=== PATIENT | female | born 1955 | race Hispanic/Latino ===

== ENCOUNTER 2024-12-07 15:02 | Inpatient (IN) | payer OTHER ==
[~2024-12-07] VITALS: Ht 154.9 cm; Wt 68.7 kg
--- NOTE | 2024-12-07 15:10 | ERN ---
ED Note History of Present Illness Stated Complaint: VOMITTING AND NAUSEA/ INSUFFICENT RENAL Chief Complaint: Abdominal Pain Time Seen by MD: 15:02 Time Seen by Midlevel: 15:08 Dictation: 69-year-old female coming in with complaints of vomiting, chills, epigastric pain for the last two days. Patient has a history of CKD non dialysis, hypertension diabetes cholesterol. Surgery includes cholecystectomy and C- section. Denies any blood in emesis or stools. Allergies: Coded Allergies: No Known Allergies (Unverified Allergy, Unknown, 12/07/24) Review of System Dictation Constitutional: Negative for fever,chills, and weight loss Eyes: Negative for injury, pain,redness, and discharge ENT: Negative for injury,pain or swelling Cardiovascular: Negative for chest pain, palpitations, and edema Respiratory: Negative for shortness of breath, cough, and wheezing, Abdomen/GI: complaining of nausea vomiting and right flank pain Back: Negative for injury and pain : Negative for injury, bleeding and discharge MS/Extremity: Negative for injury and deformity Skin: Negative for rash, and discoloration Neuro: Negative for headache, weakness, numbness, tingling, and seizure Psych: Negative for suicide ideation, homicidal ideation, and hallucinations Review of Systems: was completed Initial Vital Sign VS Vital Signs Date Time Temp Pulse Resp B/P (MAP) Pulse Ox O2 Delivery O2 Flow Rate FiO2 12/07/24 15:08 99.0 79 18 144/63 98 Room Air 0 12/07/24 18:47 21 Physical Exam Dictation General: awake, alert, NAD Head/Face: Normocephalic, atraumatic Eyes: PERRL, EOMI, vision at baseline ENT: oral cavity clear, TMs clear, no signs of infection Neck: Trachea midline, supple, no nuchal rigidity Cardiovascular: RRR, normal S1/S2, No MRGs, no JVD Respiratory: CTAB, no respiratory distress, No rales or wheezes Abdomen: Soft, non-tender, non-distended, normal bowel sounds, no guarding or rebound. No CVA tenderness Skin: Warm, dry, normal turgor, no rash MS/Extremity: Pulses equal, no cyanosis, neurovascular intact, FROM Neuro: COAx4, GCS 15, strength 5/5, CN 2-12 intact, normal cerebellar exam, normal gait, Psych: Normal behavior, mood, and affect normal Results (Laboratory/Radiology) Laboratory/Radiology Laboratory Tests Test 12/07/24 15:38 White Blood Count 12.9 K/uL (4.8-10.8) H Red Blood Count 3.06 MIL/uL (4.00-5.50) L Hemoglobin 7.9 g/dL (12.0-16.0) L Hematocrit 24.4 % (36-48) L Mean Corpuscular Volume 79.7 fL (79-99) Mean Corpuscular Hemoglobin 25.8 pg (27.0-33.0) L Mean Corpuscular Hemoglobin Concent 32.4 g/dL (32.0-36.0) Red Cell Distribution Width 16.6 % (11.0-15.5) H Platelet Count 186 K/uL (130-400) Mean Platelet Volume 10.7 fL (7.5-10.5) H Immature Granulocyte % (Auto) 1.2 % (0-1) H Neutrophils (%) (Auto) 90.5 % (40.0-77.0) H Lymphocytes (%) (Auto) 3.5 % (21.0-51.0) L Monocytes (%) (Auto) 4.1 % (3.0-13.0) Eosinophils (%) (Auto) 0.5 % (0.0-8.0) Basophils (%) (Auto) 0.2 % (0.0-5.0) Neutrophils # (Auto) 11.7 K/uL (1.8-7.7) H Lymphocytes # (Auto) 0.5 K/uL (1.0-4.8) L Monocytes # (Auto) 0.5 K/uL (0.1-1.0) Eosinophils # (Auto) 0.07 K/uL (0.00-0.70) Basophils # (Auto) 0.02 K/uL (0.00-0.20) Absolute Immature Granulocyte (auto 0.15 K/uL (0-1) Nucleated Red Blood Cells 0.2 % (0.0-0.19) H White Cell Morphology Comment See comments Sodium Level 141 mmol/L (136-145) Potassium Level 4.1 mmol/L (3.5-5.1) Chloride Level 106 mmol/L (101-111) Carbon Dioxide Level 7 mmol/L (21-32) *L Blood Urea Nitrogen 180 mg/dL (7-18) *H Creatinine 11.5 mg/dL (0.5-1.0) *H Glomerular Filtration Rate Calc 3 mL/min (>90) Random Glucose 169 mg/dL (70-105) H Total Calcium 6.4 mg/dL (8.5-10.1) L Total Bilirubin 0.4 mg/dL (0.2-1.0) Direct Bilirubin 0.1 mg/dL (0.0-0.3) Aspartate Amino Transf (AST/SGOT) 8 U/L (10-37) L Alanine Aminotransferase (ALT/SGPT) 17 U/L (12-78) Alkaline Phosphatase 90 U/L (50-136) Total Protein 7.0 g/dL (6.0-8.3) Albumin 3.0 g/dL (3.5-5.0) L Lipase 166 U/L (16-77) H Labs Reviewed?: Yes EKG Comment: EKGs did not 15 30. Sinus rhythm at a rate of 77. No STEMI interpreted by ER MD. ED Course ED Course Orders Procedure Category Date Status Time Cbc With Differential LAB 12/07/24 Complete 15:10 Basic Metabolic Panel LAB 12/07/24 Complete 15:10 Lipase LAB 12/07/24 Complete 15:10 Hepatic Function Panel LAB 12/07/24 Complete 15:10 12 Lead Ekg Tracing- EKG 12/07/24 Resulted Technical 15:10 Ondansetron 4mg Inj PHA 12/07/24 Complete (Zofran 4mg Inj) 15:10 Famotidine 20mg Vial PHA 12/07/24 Complete (Pepcid 20mg Vial) 15:10 0.9%Nacl 1000ml (Ns PHA 12/07/24 Complete 1000ml) 15:10 Ct Abdomen/Pelvis W/O CT 12/07/24 Resulted Contrast 17:57 Nephrology Consult CONPHYSVC 12/07/24 Transmitted 18:01 Morphine 2mg Syg PHA 12/07/24 Complete (Morphine 2mg Syg) 19:00 Acetaminophen 325 Tab PHA 12/07/24 Complete (Tylenol 325mg Tab 19:00 Ceftriaxone 1g Vial PHA 12/07/24 Logged (Rocephine 1g Inj) 19:19 Azithromycin 500mg+Ns PHA 12/07/24 Logged 250ml (Azithromyci 19:19 Current Medications Medications (Trade) Dose Ordered Sig/Julio Cesar Route PRN Reason Start Time Stop Time Status Last Admin Dose Admin Acetaminophen (TYLenol 325MG TAB) 650 mg ONCE ONCE PO 12/07/24 19:00 12/07/24 19:01 DC 12/07/24 19:06 Azithromycin 250 ml @ 250 mls/hr Q24H STAT IVPB 12/07/24 19:19 12/07/24 20:18 UNV Ceftriaxone Sodium (ROCEphine 1G INJ) 1 gm ONCE STAT IVPB 12/07/24 19:19 12/07/24 19:20 UNV Famotidine (Pepcid 20mg Vial) 20 mg ONCE STAT IV 12/07/24 15:10 12/07/24 15:14 DC 12/07/24 16:07 Morphine Sulfate (morPHINE 2MG SYG) 2 mg ONCE ONCE IVP 12/07/24 19:00 12/07/24 19:01 DC Ondansetron HCl (zoFRAN 4MG INJ) 4 mg ONCE STAT IVP 12/07/24 15:10 12/07/24 15:15 DC 12/07/24 16:07 Sodium Chloride 1,000 ml @ 500 mls/hr Q2H STAT IV 12/07/24 15:10 12/07/24 17:09 DC 12/07/24 16:08 Vital Signs Date Time Temp Pulse Resp B/P (MAP) Pulse Ox O2 Delivery O2 Flow Rate FiO2 12/07/24 19:06 99.0 12/07/24 18:47 99.0 74 20 118/56 99 Room Air* 0 21 12/07/24 15:08 99.0 79 18 144/63 98 Room Air 0 Medical Decision Making MDM MDM: 69-year-old female coming in with complaints of vomiting, chills, epigastric pain for the last two days. Patient has a history of CKD non dialysis, hypertension diabetes cholesterol. Surgery includes cholecystectomy and . Denies any blood in emesis or stools.CBC shows white count of 12, anemia hemoglobin of 7.9 and hematocrit of 24, more than likely related to her CKD. Chemistry shows normal potassium of 4.1. BUN is 180, creatinine is 11.5 consistent with her history of CKD. No transaminitis. T bili within normal range. Lipase is 166. Spoke to riprap placer , reviewed lab work, states to admit the patient and he will consult. Does not recommend any medications or any other exam sent at this time. Pain doing call back from hospitalist for admission. Ct showing pneumonia in lower lobes, abx initiated. Spoke to bharat potato chip cooker machine for hospitalist. Differential diagnosis: Gastroenteritis, DKA, dehydration, pancreatitis Rationale: Tests considered and ordered secondary to shared decision making include: labs, ECG and radiology Previous outside records reviewed: Old ER visits. Risk of complication and/or morbidity or mortality of patient management: None Medications-Per medication reconciliation Need for hospitalization: Patient does meet criteria for hospitalization. Need for emergency major/minor surgery: No There are no social concerns with this patient. Prescription drug management Prescriptions will include symptomatic care Patient's prior external medical records from other ER visits were reviewed by me as indicated. Prior testing and results from previous visits were reviewed. Prior tests were taken into account with medical decision making and resource utilization, independent historian/historians were used to obtain complete medical history. I independently interpreted the test that were performed, results were reviewed by me and considered findings on radiology if ordered. Medical management and examination interpretation discussions were had by me with other qualified healthcare professionals as indicated for the patient's care. DX & DISP Disposition: Inpatient Decision to Admit Date: Dec 07, 2024 Decision to Admit Time: 19:24 Departure Impression: Primary Impression: CKD (chronic kidney disease) Additional Impressions: Anemia, Pneumonia Condition: Stable Referrals: SELF,REFERRAL (PCP) I have reviewed the case, and I agree with, Diagnosis and Plan PARKER SHEA NP Dec 07, 2024 15:10
--- NOTE | 2024-12-07 15:34 | EKG ---
[facility] Test Date: 2024-12-07 Test Time: 15:30:28 Pat Name: JORDYN CEDENO Department: ED Room: Gender: F Human Resources Technician: [id number] [phone] [id number] Requested By: PARKER SHEA Order Number: [id number] Reading MD: Binh Huynh Measurements Intervals [place] Rate: 77 P: 53 TX: 153 QRS: 29 QRSD: 81 T: 29 QT: 440 QTc: 499 Interpretive Statements Sinus rhythm No previous ECG available for comparison Electronically Signed On 12-07-2024 17:21:26 CDT by Binh Huynh Please click the below link to view image of tracing.
[2024-12-07 15:52] LABS: IMMATURE GRANULOCYTE ABSOLUTE 0.15 K/uL (0-1); NUCLEATED RED BLOOD CELLS 0.2 % (0.0-0.19); PLATELET COUNT (AUTO) 186 K/uL (130-400); RED BLOOD CELL COUNT(AUTO) 3.06 MIL/uL (4.00-5.50); RED CELL DISTRIBUTION WIDTH 16.6 % (11.0-15.5); WHITE BLOOD COUNT (AUTO) 12.9 K/uL (4.8-10.8)
[2024-12-07] MEDS: FAMOTIDINE 20MG VIAL IV STA (16:07)
[2024-12-07] MEDS: 0.9%NACL 1000ML 1,000 ML IV STA (16:08)
[2024-12-07 16:20] LABS: ASPARTATE AMINOTRANSFERASE 8.0 U/L (10-37); GLOMERULAR FILTR. RATE CALC 3.0 mL/min (>90); GLUCOSE,RANDOM 169.0 mg/dL (70-105); SODIUM SERUM 141.0 mmol/L (136-145); TOTAL PROTEIN, SERUM 7.0 g/dL (6.0-8.3)
[2024-12-07 16:28] LABS: CREATININE 11.5 mg/dL (0.5-1.0); UREA NITROGEN, BLOOD 180.0 mg/dL (7-18)
--- NOTE | 2024-12-07 18:37 | HMCIMG ---
CT ABDOMEN WITHOUT CONTRAST. CT PELVIS WITHOUT CONTRAST. INDICATION: Right flank pain TECHNIQUE: Routine transaxial imaging using 5 mm slice thickness through the abdomen and pelvis without the administration of IV contrast. Thin slice reconstructions are also provided. Coronal and sagittal reformatted images acquired for interpretation. CT was performed with one or more of the following dose reduction techniques: Automated exposure control, adjustment of the mA and/or kV according to patient size, or use of iterative reconstruction technique. COMPARISON: None FINDINGS: ON NONCONTRAST IMAGING: ABDOMEN: Heart size is normal. Patchy opacities bilateral lower lobes No abnormal renal calcifications, hydronephrosis, perinephric inflammation, or proximal hydroureter detected. The liver is normal in size and smooth in contour without biliary duct dilation. The spleen is normal in size and attenuation. The gallbladder his absent. The pancreas appears normal without pancreatic duct dilation. The adrenal glands appear normal. No significant abdominal, retrocrural or retroperitoneal adenopathy noted. No evidence for intra-abdominal free air or organized fluid collection. Mild calcific plaque is noted along the abdominal aortic and iliac vessel ludwig without aneurysmal dilation. Tiny fat-containing nonobstructing umbilical hernia. PELVIS: No abnormal calcifications within the urinary bladder or distal ureters. No evidence for free air or organized pelvic fluid collection. No significant pelvic adenopathy detected. Several diverticula along the proximal colon. Terminal ileum appears unremarkable. The appendix appears normal. Visible osseous structures are intact. IMPRESSION: Bilateral lower lobe pneumonia. Proximal colonic diverticulosis. Tiny fat-containing nonobstructing umbilical hernia.
[2024-12-07] MEDS: AZITHROMYCIN 500MG+NS 250ML 250 ML IVPB STA (19:47)
--- NOTE | 2024-12-07 20:14 | HMCIMG ---
PORTABLE CHEST RADIOGRAPH INDICATION: pneumonia per abd CT COMPARISON: None FINDINGS: Heart size is normal. The pulmonary vascularity and mavis appear normal. Patchy bilateral lower lobe opacities, left greater than right, without consolidation. No significant pleural effusion noted. No pneumothorax detected. IMPRESSION: Bilateral lower lung pneumonia.
--- NOTE | 2024-12-07 20:49 | HP ---
[facility] HISTORY AND PHYSICAL Date of Service: Dec 07, 2024 Time of Service: 20:48 Admitting/supervising physicians: Dr. Lara and Dr. Padilla HISTORY OF PRESENT ILLNESS: Ms. Kirby is a 69-year-old female who [place] [facility] [place] evaluation of vo miting, chills, epigastric pain for the last two days. Patient has a history of CKD non dialysis, hypertension diabetes cholesterol. Surgery includes cholecystectomy and . Denies any blood in emesis or stools. In ED patient was found to have bilateral lower lobe pneumonia from the CT abdomen and pelvis obtain. CT abdomen also showed proximal colonic diverticulosis. Tiny fat stranding nonobstructing umbilical hernia. WBCs were 12.9. UA was positive for leuk EST. BUN 180, creatinine 11.5, GFR three. ED let patient's shotgun shell assembly machine operator Dr. Burt know of the patient, who will follow patient in the hospital. ED provider request patient be admitted with the diagnosis of CKD, anemia, pneumonia. I assessed the patient at bedside in room number 308. Patient's breathing was even, unlabored, in no distress. I informed the patient of labs, diagnostics, and plan of care. She verbalized understanding and is in agreement with the plan. Plan and assessment are listed below. REVIEW OF SYSTEMS 12-point ROS reviewed with the patient. All pertinent positives mentioned above. Otherwise negative, noncontributory, non-pertinent. PAST MEDICAL HISTORY: As mentioned above PAST SURGICAL HISTORY: Cholecystectomy and PAST SOCIAL HISTORY: Denies alcohol, tobacco, illicit drug use FAMILY HISTORY: Noncontributory Coded Allergies: No Known Allergies (Unverified Allergy, Unknown, 12/07/24) PHYSICAL EXAM GENERAL APPEARANCE: The patient is awake, alert, and oriented, in no acute cardiopulmonary distress. NEUROLOGICAL: Cranial nerves II-XII grossly intact. Motor is 5/5 in bilateral upper and lower extremities proximal to distal. No sensory deficits. HEENT: Face is symmetric. Pupils are equal and reactive. Extraocular movements are intact. NECK: Supple. No JVD. No thyromegaly. No submental, submandibular, pre- /postauricular, occipital or supraclavicular lymphadenopathy. CHEST: Normal chest expansion. No Telemetry. LUNGS: + wheezing. Breathing was even, unlabored, on room air CARDIOVASCULAR: Regular. S1 and S2 normal. No appreciable rubs, murmurs or gallops. ABDOMEN: Soft, nontender, and nondistended. Obese. There is no rebound, voluntary guarding, or rigidity. : Deferred. No Gupta. EXTREMITIES: Non-edematous and not cyanotic. No clubbing. Good capillary refill. SKIN: No skin breakdown. Vital Sign (Last 24 Hours) 12/07/24 19:44 Temp 99.0 Pulse 74 Resp 20 B/P (MAP) 120/61 Pulse Ox 98 O2 Delivery Room Air* O2 Flow Rate 0 FiO2 21 LABS: Laboratory: Test 12/07/24 19:33 12/07/24 15:38 Range/Units Lactic Acid Level 1.1 0.8-2.5 mmol/L White Blood Count 12.9 H 4.8-10.8 K/uL Red Blood Count 3.06 L 4.00-5.50 MIL/uL Hemoglobin 7.9 L 12.0-16.0 g/dL Hematocrit 24.4 L 36-48 % Mean Corpuscular Volume 79.7 79-99 fL Mean Corpuscular Hemoglobin 25.8 L 27.0-33.0 pg Mean Corpuscular Hemoglobin Concent 32.4 32.0-36.0 g/dL Red Cell Distribution Width 16.6 H 11.0-15.5 % Platelet Count 186 130-400 K/uL Mean Platelet Volume 10.7 H 7.5-10.5 fL Immature Granulocyte % (Auto) 1.2 H 0-1 % Neutrophils (%) (Auto) 90.5 H 40.0-77.0 % Lymphocytes (%) (Auto) 3.5 L 21.0-51.0 % Monocytes (%) (Auto) 4.1 3.0-13.0 % Eosinophils (%) (Auto) 0.5 0.0-8.0 % Basophils (%) (Auto) 0.2 0.0-5.0 % Neutrophils # (Auto) 11.7 H 1.8-7.7 K/uL Lymphocytes # (Auto) 0.5 L 1.0-4.8 K/uL Monocytes # (Auto) 0.5 0.1-1.0 K/uL Eosinophils # (Auto) 0.07 0.00-0.70 K/uL Basophils # (Auto) 0.02 0.00-0.20 K/uL Absolute Immature Granulocyte (auto 0.15 0-1 K/uL Nucleated Red Blood Cells 0.2 H 0.0-0.19 % White Cell Morphology Comment See comments Sodium Level 141 136-145 mmol/L Potassium Level 4.1 3.5-5.1 mmol/L Chloride Level 106 101-111 mmol/L Carbon Dioxide Level 7 *L 21-32 mmol/L Blood Urea Nitrogen 180 *H 7-18 mg/dL Creatinine 11.5 *H 0.5-1.0 mg/dL Glomerular Filtration Rate Calc 3 >90 mL/min Random Glucose 169 H 70-105 mg/dL Total Calcium 6.4 L 8.5-10.1 mg/dL Total Bilirubin 0.4 0.2-1.0 mg/dL Direct Bilirubin 0.1 0.0-0.3 mg/dL Aspartate Amino Transf (AST/SGOT) 8 L 10-37 U/L Alanine Aminotransferase (ALT/SGPT) 17 12-78 U/L Alkaline Phosphatase 90 50-136 U/L Total Protein 7.0 6.0-8.3 g/dL Albumin 3.0 L 3.5-5.0 g/dL Lipase 166 H 16-77 U/L Current Medications Medications (Trade) Dose Ordered Sig/Julio Cesar Route PRN Reason Start Time Stop Time Status Last Admin Dose Admin Acetaminophen (TYLenol 325MG TAB) 650 mg Q6H PRN PO FEVER/MILD PAIN LEVEL 1-3 12/07/24 21:00 01/06/25 20:59 Acetaminophen (TYLenol 650MG SUPPOSITORY) 650 mg Q6H PRN RC FEVER / MILD PAIN 1-3 IF NPO 12/07/24 21:00 01/06/25 20:59 Albuterol Sulfate (Proventil 0.083% 2.5mg/3ml) 2.5 mg [id number] PRN IH SHORTNESS OF BREATH 12/07/24 21:00 01/06/25 20:59 Azithromycin 250 ml @ 250 mls/hr Q24H STAT IVPB 12/07/24 19:19 12/07/24 20:18 DC 12/07/24 19:47 250 MLS/HR Ceftriaxone Sodium (ROCEphine 1G INJ) 1 gm ONCE STAT IVPB 12/07/24 19:19 12/07/24 19:22 DC 12/07/24 19:34 1 GM Docusate Sodium (COLace 100MG CAP) 100 mg BID PRN PO c 12/07/24 21:00 01/06/25 20:59 Famotidine (Pepcid 20mg Vial) 20 mg ONCE STAT IV 12/07/24 15:10 12/07/24 15:14 DC 12/07/24 16:07 20 MG Insulin Human Regular (humuLIN R 100 UNIT/ML 3ML) INSULIN SLIDING SCAL... ACHS SQ 12/07/24 21:00 01/06/25 20:59 Ipratropium Monarch (AtrovENT UD) 0.5 mg [id number] PRN IH SHORTNESS OF BREATH/WHEEZING 12/07/24 21:00 01/06/25 20:59 Labetalol HCl (TRANdate 20MG SYG) 10 mg Q2H PRN IV SBP GREATER THAN 160 12/07/24 21:00 01/06/25 20:59 Lactulose (Constulose 20gm/ 30ml Udcup) 20 gm Q6H PRN PO CONSTIPATION 12/07/24 21:00 01/06/25 20:59 Ondansetron HCl (zoFRAN 4MG INJ) 4 mg ONCE STAT IVP 12/07/24 15:10 12/07/24 15:15 DC 12/07/24 16:07 4 MG Ondansetron HCl (zoFRAN 4MG INJ) 4 mg Q6H PRN IVP NAUSEA/VOMITING 12/07/24 21:00 01/06/25 20:59 Sodium Chloride 1,000 ml @ 500 mls/hr Q2H STAT IV 12/07/24 15:10 12/07/24 17:09 DC 12/07/24 16:08 500 MLS/HR Temazepam (restORIL 15 MG CAP) 15 mg HS PRN PO INSOMNIA/SLEEP 12/07/24 21:00 01/06/25 20:59 DIAGNOSTICS / RADIOLOGY: [ ] ASSESSMENT: CAP, POA, bilateral lower lung pneumonia, per chest x-ray and CT Acute complicated cystitis, POA Metabolic Acidosis, POA Acute epigastric pain, POA Acute vomiting, POA Acute febrile illness Leukocytosis, POA Anemia of chronic disease ESRD non dialysis, GFR 3 Diabetes mellitus with hyperglycemia Hypoalbuminemia Elevated lipase PLAN: -Admit to Medical floor with continuous telemetry monitoring -Monitor respiratory status closely. -Continue oxygen therapy as needed. Titrate oxygen prn to keep Spo2>/+=92%. -Albuterol and Atrovent q.6 hours scheduled. -Pulmicort 0.5 mg b.i.d. -Start Lasix 40 mg IV daily. -Sodium bicarb and calcium gluconate x1 dose. -Reconcile/start home medications: Amlodipine, Lasix, metoprolol succinate. -Strict I&Os. -Daily weights. -Fluid restriction a 1200 mL. -Nephrology has been consulted by ED. We will follow Nephrology's re commendations. -RT to provide IS and education on use. -Robitussin DM as needed cough. -Continue antibiotic therapy: Zithromax 500 mg IV daily and Rocephin 2 g IV daily -PRN medications for: Pain management, fever, hypertension, N/V, constipation. -Glucometer checks AC & HS needed with insulin regular sliding scale coverage as needed. -Blood pressure checks every 4 hours and as needed. -Reconcile home medications once available. - Monitor renal and liver function. -Monitor electrolytes and treat accordingly PRN -AM labs. -GI and DVT prophylaxis: Pepcid and heparin -Further plan/orders per hospitalization course. ADVANCED CARE PLANNING 1. Which of the following were discussed? Hospice Care - No Therapeutic options - Yes Advance Directives - Yes Other discussions - 2. Discussed with who? The patient 3. Voluntary nature of this service was explained to the patient? Yes 4. Amount of time spent - __ Over 40 minutes 5. Reviewed by Physician? (if this service was performed by NPP) Yes / No ATTESTATION BY PHYSICIAN I have seen and examined the patient. I reviewed the documentation, medical decision making, and treatment plan as noted by the mid-level provider above. I agree with the findings and plan of care. VERONA CLARK [facility] Dec 07, 2024 20:49
[2024-12-07] MEDS ORDERED: LACTULOSE 20 GM/30 ML UDCUP PO PRN (21:00)
[2024-12-07] MEDS: ALBUTEROL 0.083% 2.5 MG/3 ML INH IH PRN (21:49)
[2024-12-07 21:50] VITALS: PULSE 86; RESP 19; O2SAT 96
[2024-12-07] MEDS ORDERED: METO-391 PO (22:54)
[2024-12-07] MEDS ORDERED: AMLO-258 PO (22:54)
[2024-12-07] MEDS ORDERED: FURO40SO4 PO (22:54)
[2024-12-07 23:34] VITALS: BP 136/45; PULSE 79; RESP 19; TEMP 98.1
[2024-12-07 23:50] VITALS: PULSE 82; RESP 19
[2024-12-08] VITALS (10 sets, daily range): BP systolic 119–151; BP diastolic 53–65; PULSE 73–93; RESP 18–19; TEMP 98–98.6; O2SAT 93–100
--- NOTE | 2024-12-08 01:36 | CONS ---
NEPHROLOGY CONSULTATION REASON FOR CONSULTATION: The patient was brought in with worsening renal failure, underlying hypertension and diabetes. The patient has nausea and vomiting. HISTORY OF PRESENT ILLNESS: This lady has multiple medical problems. She is admitted with increasing shortness of breath. The patient does have underlying nausea, vomiting, pain in the abdomen. The patient has advanced renal failure, diabetes and hypertension. No other associated findings. No other aggravating or relieving factors. The patient now is critically ill. The patient has significant anemia. PAST MEDICAL HISTORY: As above is significant for diabetes, hypertension, hyperlipidemia and chronic kidney disease. PAST SURGICAL HISTORY: Cholecystectomy and . SOCIAL HISTORY: Denies any smoking, alcohol or drug abuse. FAMILY HISTORY: Negative for any kidney cyst, stone or renal problems. REVIEW OF SYSTEMS: CONSTITUTIONAL: Generalized weakness with no fevers, chills or rigors. HEENT: With no headache, oral ulcer, sore throat or difficulty swallowing. RESPIRATORY: No cough, expectoration, hemoptysis or pleuritic pain. CARDIOVASCULAR: No orthopnea or PND. GASTROINTESTINAL: Positive for some nausea, vomiting, weakness, loss of appetite. GENITOURINARY: No dysuria and hematuria. DERMATOLOGIC: No rashes, pruritus. ENDOCRINE: No polyuria, polydipsia or polyphagia. PSYCHIATRIC: Review is negative for anxiety, depression, hallucinations. All other systemic review is unchanged. PHYSICAL EXAMINATION: GENERAL: Pale, no other distress or deformity, obese, laying in bed. VITAL SIGNS: Blood pressure is 144/63, pulse is 79, respiratory rate is 18 and afebrile. HEENT: Head is atraumatic, normocephalic. Pupils are round, reactive. Sclerae anicteric. Conjunctiva not pale. Oral mucosa is not dry. NECK: Supple. No masses or bruits. Thyroid is palpable. Neck has no bruits. CHEST: Shows equal to thoracic percussion note being resonant in all areas. CARDIAC: Regular rhythm. No rub. No S3, S4. No parasternal heave. ABDOMEN: With no guarding or tenderness. Bowel sounds hypoactive. No free fluid. EXTREMITIES: With no edema. No cyanosis or clubbing. BACK: No tenderness or back deformities. SKIN: No other petechial rash or nodules on inspection. LYMPHATIC: No lymph node swelling in neck and axillary area. NEUROLOGIC: Awake, alert, nonfocal. No cranial nerve palsies. LABORATORY DATA: Labs have shown low hemoglobin of 7.9 and white cell count 12.9. Creatinine is quite elevated up to 11.5, BUN is 180 and low CO2 of 7. IMAGING STUDIES: Reviewed. EKG has shown sinus rhythm. No other findings. No other major changes. Imaging studies have been done. Abdominal and pelvic CT has shown no evidence of hydronephrosis. bilateral pneumonia. Chest x-ray was reviewed with bilateral infiltrates. PROBLEMS: Include, this patient has: * Renal failure, which may be [id number] or may have reached end stage II. * Severe acidosis. * Severe anemia. * Pneumonia. * Underlying diabetic nephropathy. * Underlying hypertension. * Significant anemia. * Underlying reported noncompliance. * Weakness and other comorbidities. * The patient is critically ill. PLAN: * Should get a potline monitor. * Iron panel and ferritin. * Sodium bicarbonate. * Nephro-[place]. * May need dialysis. * Maintain hydration. * Nonsteroidal drugs to be avoided. * Other nephrotoxic and NSAIDs to be avoided. * Adjust dose of medicine. * Avoid contrast. * Preserve nondominant arm. * Continued followup on renal function, electrolytes and overall status. IV Dilaudid 0.5 mg q.6h p.r.n. pain. We have discussed with the other team physicians. We have reviewed the old record, external records. Labs and x-ray were personally reviewed and followup labs and imaging studies are ordered. We will follow up closely. Condition remains critical and guarded. TID: [id number] RECEIPT: [id number]
[2024-12-08 02:12] LABS: ADD UA MICROSCOPIC YES; APPEARANCE,URINE CLEAR (CLEAR); GLUCOSE, URINE (UA) 50 mg/dL (NEGATIVE); LEUKOCYTE ESTERASE ,URINE 250 Leu/uL (NEGATIVE); NITRATE,URINE NEGATIVE (NEGATIVE); OCCULT BLOOD,URINE SMALL (NEGATIVE)
[2024-12-08 02:15] LABS: CREATININE,URINE RANDOM 43.26 mg/dL (30-135)
[2024-12-08 02:17] LABS: SQUAMOUS EPITHELIAL CELL,UR RARE /HPF (0-2)
[2024-12-08 04:44] LABS: ABG BASE EXCESS -21.5 mmol/L (-2.0-3.0); ABG HCO3 5.7 mmol/L (21.0-28.0); ABG OXYGEN SATURATION 96.8 % (94.0-98.0); ABG PCO2 17 mmHg (32-45); ABG PH 7.136 (7.350-7.450); CARBON MONOXIDE 0.1 % (0.5-1.5); DEVICE COMMENT RR, RN CYNTHIA; PO2, ARTERIAL BG 110.9 mmHg (83.0-108.0); TEMPERATURE, CELSIUS BG 37.0 CELSIUS (35.5-37.0); VENT MODE, BG RA (ROOM AIR)
[2024-12-08 04:48] LABS: ABG BASE EXCESS -21.3 mmol/L (-2.0-3.0); ABG HCO3 5.5 mmol/L (21.0-28.0); ABG OXYGEN SATURATION 97.1 % (94.0-98.0); ABG PCO2 16 mmHg (32-45); ABG PH 7.154 (7.350-7.450); CARBON MONOXIDE 0.3 % (0.5-1.5); DEVICE COMMENT RR, RNCYNTHIA; PO2, ARTERIAL BG 114.3 mmHg (83.0-108.0); TEMPERATURE, CELSIUS BG 37.0 CELSIUS (35.5-37.0); VENT MODE, BG RA (ROOM AIR)
[2024-12-08 04:57] LABS: RAPID GROUP A STREP negative (NEGATIVE)
[2024-12-08 05:02] LABS: SARS-CoV-2, RNA, NAAT NEGATIVE SARS CoV-2 (NEGATIVE)
[2024-12-08 05:07] LABS: INFLUENZA TYPE A Negative For Type A (NEGATIVE); INFLUENZA TYPE B Negative For Type B (NEGATIVE)
[2024-12-08] MEDS: SODIUM BICARB 50MEQ 50ML VIAL IV ONE (05:45)
[2024-12-08] MEDS: CALCIUM GLUC 1GM/10ML VIAL IV ONE (05:45)
[2024-12-08 06:39] LABS: NUCLEATED RED BLOOD CELLS 0.2 % (0.0-0.19); PLATELET COUNT (AUTO) 189.0 K/uL (130-400); RED BLOOD CELL COUNT(AUTO) 2.71 MIL/uL (4.00-5.50); RED CELL DISTRIBUTION WIDTH 16.2 % (11.0-15.5); WHITE BLOOD COUNT (AUTO) 9.2 K/uL (4.8-10.8)
[2024-12-08] MEDS: BUDESONIDE 0.5 MG/2 ML INH IH SCH (07:17)
[2024-12-08 07:23] LABS: % IRON SATURATION 11.6 % (22-44); IRON, SERUM 21.0 mcg/dL (50-170)
[2024-12-08 07:29] LABS: ASPARTATE AMINOTRANSFERASE 7.0 U/L (10-37); GLOMERULAR FILTR. RATE CALC 4.0 mL/min (>90); GLUCOSE,RANDOM 125.0 mg/dL (70-105); SODIUM SERUM 146.0 mmol/L (136-145); TOTAL PROTEIN, SERUM 6.4 g/dL (6.0-8.3)
[2024-12-08 07:38] LABS: CREATININE 10.7 mg/dL (0.5-1.0); UREA NITROGEN, BLOOD 170.0 mg/dL (7-18)
[2024-12-08 07:45] LABS: NUCLEATED RED BLOOD CELLS 0.3 % (0.0-0.19); PLATELET COUNT (AUTO) 170.0 K/uL (130-400); RED BLOOD CELL COUNT(AUTO) 2.66 MIL/uL (4.00-5.50); RED CELL DISTRIBUTION WIDTH 16.3 % (11.0-15.5); WHITE BLOOD COUNT (AUTO) 7.9 K/uL (4.8-10.8)
[2024-12-08 07:51] LABS: PHOSPHORUS 9.6 mg/dL (2.5-4.9)
[2024-12-08] MEDS: FAMOTIDINE 20MG VIAL IV SCH (08:47)
[2024-12-08] MEDS: SODIUM BICARBONATE 650 MG TAB PO SCH (08:47)
[2024-12-08] MEDS: Vitamin B Complex/Vit C/Folic Acid PO SCH (08:47)
[2024-12-08] MEDS: amLODIPine 5 MG TAB PO SCH (08:47)
--- NOTE | 2024-12-08 10:31 | NUR ---
DCP: HOME Pt currently lives with sps. Pt states that she uses a cane to assist her walk at home. Pt does not have any provider or home health services at this time. Pt states that prior to admission she did not have any dialysis. Pt is able to complete ADLs independently. PCP is Dr. James and uses [facility] for any RX needs. At [place] pt will go home and family can assist with transportation. Addendum: 12/08/24 at 1033 by NASH AVILA SS Amended: Links added.
--- NOTE | 2024-12-08 11:09 | PN ---
[facility] PROGRESS NOTE Date of Service: Dec 08, 2024 Time of Service: 11:[address] Lara SUBJECTIVE: [ 12/07 Ms. Kirby is a 69-year-old female who [place] [facility] [place] evaluation of vomiting, chills, epigastric pain for the last two days. Patient has a history of CKD non dialysis, hypertension diabetes cholesterol. Surgery includes cholecystectomy and . Denies any blood in emesis or stools. In ED patient was found to have bilateral lower lobe pneumonia from the CT abdomen and pelvis obtain. CT abdomen also showed proximal colonic diverticulosis. Tiny fat stranding nonobstructing umbilical hernia. WBCs were 12.9. UA was positive for leuk EST. BUN 180, creatinine 11.5, GFR three. ED let patient's pupil personnel services director Dr. Burt know of the patient, who will follow patient in the hospital. ED provider request patient be admitted with the diagnosis of CKD, anemia, pneumonia. I assessed the patient at bedside in room number 308. Patient's breathing was even, unlabored, in no distress. I informed the patient of labs, diagnostics, and plan of care. She verbalized understanding and is in agreement with the plan. Plan and assessment are listed below. 12/08 patient was seen by nurse practitioner and physician during rounding in room 308. Patient is pending PermCath placement today and dialysis afterwards as per pupil personnel services director. Today hemoglobin is 6.9 patient requiring one PRBC. Chest x-ray showed bilateral lower lobe pneumonia. CT abdomen/pelvis showed bilateral lower lobe pneumonia proximal colonic diverticulosis nonobstructive umbilical hernia. Patient's labs were reviewed. Patient continues to be on sodium bicarb. Urinalysis positive for leukocytosis. Blood culture and urine culture pending. Patient receive 2 g of magnesium. We will continue to monitor patient in the meantime. A.m. labs.] REVIEW OF SYSTEMS 12-point ROS reviewed with the patient. All pertinent positives mentioned above. Otherwise negative, noncontributory, non-pertinent. PHYSICAL EXAM GENERAL APPEARANCE: The patient is awake, alert, and oriented, in no acute cardiopulmonary distress. NEUROLOGICAL: Cranial nerves II-XII grossly intact. Motor is 5/5 in bilateral upper and lower extremities proximal to distal. No sensory deficits. HEENT: Face is symmetric. Pupils are equal and reactive. Extraocular movements are intact. NECK: Supple. No JVD. No thyromegaly. No submental, submandibular, pre- /postauricular, occipital or supraclavicular lymphadenopathy. CHEST: Normal chest expansion. No Telemetry. LUNGS: + wheezing. Breathing was even, unlabored, on room air CARDIOVASCULAR: Regular. S1 and S2 normal. No appreciable rubs, murmurs or gallops. ABDOMEN: Soft, nontender, and nondistended. Obese. There is no rebound, voluntary guarding, or rigidity. : Deferred. No Gupta. EXTREMITIES: Non-edematous and not cyanotic. No clubbing. Good capillary refill. SKIN: No skin breakdown. Vital Signs (last 8hr) Date Time Temp Pulse Resp B/P (MAP) Pulse Ox O2 Delivery O2 Flow Rate FiO2 12/08/24 08:00 98.1 89 18 119/62 93 Nasal Cannula 2.0 12/08/24 07:17 79 19 N/A Room Air 21 12/08/24 07:17 79 19 12/08/24 04:55 98.2 73 18 135/55 97 Room Air LABS: Laboratory: Test 12/08/24 07:38 12/08/24 06:11 12/08/24 06:10 12/08/24 04:46 Range/Units White Blood Count 7.9 4.8-10.8 K/uL Red Blood Count 2.66 L 4.00-5.50 MIL/uL Hemoglobin 6.9 *L 12.0-16.0 g/dL Hematocrit 20.4 *L 36-48 % Mean Corpuscular Volume 76.7 L 79-99 fL Mean Corpuscular Hemoglobin 25.9 L 27.0-33.0 pg Mean Corpuscular Hemoglobin Concent 33.8 32.0-36.0 g/dL Red Cell Distribution Width 16.3 H 11.0-15.5 % Platelet Count 170 130-400 K/uL Mean Platelet Volume 11.1 H 7.5-10.5 fL Nucleated Red Blood Cells 0.3 H 0.0-0.19 % Whole Blood Glucose 120 H 70-110 MG/DL Sodium Level 146 H 136-145 mmol/L Potassium Level 3.7 3.5-5.1 mmol/L Chloride Level 110 101-111 mmol/L Carbon Dioxide Level 10 *L 21-32 mmol/L Blood Urea Nitrogen 170 *H 7-18 mg/dL Creatinine 10.7 *H 0.5-1.0 mg/dL Glomerular Filtration Rate Calc 4 >90 mL/min Random Glucose 125 H 70-105 mg/dL Uric Acid 8.8 H 2.6-7.2 mg/dL Total Calcium 6.8 L 8.5-10.1 mg/dL Phosphorus Level 9.6 H 2.5-4.9 mg/dL Magnesium Level 1.30 L 1.80-2.40 mg/dL Iron Level 21 L 50-170 mcg/dL Total Iron Binding Capacity 180 L 250-450 mcg/dL Percent Iron Saturation 11.6 L 22-44 % Ferritin 52 15-150 ng/mL Total Bilirubin 0.3 # 0.2-1.0 mg/dL Aspartate Amino Transf (AST/SGOT) 7 L 10-37 U/L Alanine Aminotransferase (ALT/SGPT) 14 12-78 U/L Alkaline Phosphatase 80 50-136 U/L Total Protein 6.4 6.0-8.3 g/dL Albumin 2.7 L 3.5-5.0 g/dL Thyroid Stimulating Hormone (TSH) 1.66 0.36-3.74 uIU/mL Blood Gas Specimen Type Arterial Arterial Blood pH 7.154 *L 7.350-7.450 Arterial Blood Partial Pressure CO2 16 *L 32-45 mmHg Arterial Blood Partial Pressure O2 114.3 H 83.0-108.0 mmHg Arterial Blood HCO3 5.5 L 21.0-28.0 mmol/L Arterial Blood Oxygen Saturation 97.1 94.0-98.0 % Arterial Blood Base Excess -21.3 L -2.0-3.0 mmol/L Hemoglobin (Blood Gas) 8.1 L 12.0-16.0 g/dL Sodium (Blood Gas) 141 136-145 MMOL/L Bedside Potassium (Blood Gas) 3.8 3.4-4.5 MMOL/L Bedside Chloride (Blood Gas) 115 H 98-107 MMOL/L Bedside Glucose (Blood Gas) 145 H 65-95 MG/DL Bedside Ionized Calcium (Blood Gas) 0.89 L 1.15-1.33 MMOL/L Bedside Lactic Acid (Blood Gas) 0.86 H 0.36-0.75 MMOL/L Blood Gas Temperature 37.0 35.5-37.0 CELSIUS Blood Gas Vent Mode RA ROOM AIR FiO2 21.0 % Blood Gas PEEP 5 cm H2O Blood Gas Specimen Comment RR, RNCYNTHIA Test 12/08/24 04:30 12/08/24 02:05 12/07/24 19:33 12/07/24 15:38 Range/Units Influenza Type A Antigen Negative For Type A NEGATIVE Influenza Type B Antigen Negative For Type B NEGATIVE SARS-CoV-2, RNA, NAAT NEGATIVE SARS CoV-2 NEGATIVE Group A Streptococcus Rapid negative NEGATIVE Urine Color COLORLESS YELLOW Urine Appearance CLEAR CLEAR Urine pH 5.5 5.0-8.0 Urine Specific [place] 1.009 1.001-1.031 Urine Protein 100 H NEGATIVE mg/dL Urine Glucose (UA) 50 H NEGATIVE mg/dL Urine Ketones NEGATIVE NEGATIVE mg/dL Urine Occult Blood SMALL H NEGATIVE Urine Nitrate NEGATIVE NEGATIVE Urine Bilirubin NEGATIVE NEGATIVE mg/dL Urine Urobilinogen 0.2 0.2-1.0 mg/dL Urine Leukocyte Esterase 250 H NEGATIVE Lito/uL Urine RBC 2-5 H 0-1 /HPF Urine WBC 26-50 H 0-1 /HPF Urine Squamous Epithelial Cells RARE 0-2 /HPF Urine Bacteria FEW None Seen /HPF Urine Random Creatinine 43.26 30-135 mg/dL Urine Random Sodium 90 40-220 mmol/l Urine Random Potassium 17 L 25-125 mmol/L Urine Random Chloride 99 L 110-250 mmol/L Lactic Acid Level 1.1 0.8-2.5 mmol/L Immature Granulocyte % (Auto) 1.2 H 0-1 % Neutrophils (%) (Auto) 90.5 H 40.0-77.0 % Lymphocytes (%) (Auto) 3.5 L 21.0-51.0 % Monocytes (%) (Auto) 4.1 3.0-13.0 % Eosinophils (%) (Auto) 0.5 0.0-8.0 % Basophils (%) (Auto) 0.2 0.0-5.0 % Neutrophils # (Auto) 11.7 H 1.8-7.7 K/uL Lymphocytes # (Auto) 0.5 L 1.0-4.8 K/uL Monocytes # (Auto) 0.5 0.1-1.0 K/uL Eosinophils # (Auto) 0.07 0.00-0.70 K/uL Basophils # (Auto) 0.02 0.00-0.20 K/uL Absolute Immature Granulocyte (auto 0.15 0-1 K/uL White Cell Morphology Comment See comments Direct Bilirubin 0.1 0.0-0.3 mg/dL Lipase 166 H 16-77 U/L Current Medications Medications (Trade) Dose Ordered Sig/Julio Cesar Route PRN Reason Start Time Stop Time Status Last Admin Dose Admin Acetaminophen (TYLenol 325MG TAB) 650 mg Q6H PRN PO FEVER/MILD PAIN LEVEL 1-3 12/07/24 21:00 01/06/25 20:59 Acetaminophen (TYLenol 650MG SUPPOSITORY) 650 mg Q6H PRN RC FEVER / MILD PAIN 1-3 IF NPO 12/07/24 21:00 01/06/25 20:59 Albuterol (DUOneb) 1 udvial [id number] IH 12/07/24 23:00 01/06/25 22:59 12/08/24 07:17 1 UDVIAL Albuterol Sulfate (Proventil 0.083% 2.5mg/3ml) 2.5 mg [id number] PRN IH SHORTNESS OF BREATH 12/07/24 21:00 01/06/25 20:59 12/07/24 21:49 2.5 MG Amlodipine Besylate (NorvASC 5MG TAB) 10 mg DAILY PO 12/08/24 09:00 01/07/25 08:59 12/08/24 08:47 10 MG Azithromycin 250 ml @ 250 mls/hr Q24H IVPB 12/08/24 21:00 12/18/24 20:59 Azithromycin 250 ml @ 250 mls/hr Q24H STAT IVPB 12/07/24 19:19 12/07/24 20:18 DC 12/07/24 19:47 250 MLS/HR Budesonide (Pulmicort 0.5 Mg/2ml) 0.5 mg BIDRESP IH 12/08/24 06:00 01/07/25 05:59 12/08/24 07:17 0.5 MG Ceftriaxone Sodium (ROCEphine 1G INJ) 1 gm DAILY08 IVPB 12/08/24 08:00 12/08/24 04:05 DC Ceftriaxone Sodium (ROCEphine 1G INJ) 1 gm ONCE STAT IVPB 12/07/24 19:19 12/07/24 19:22 DC 12/07/24 19:34 1 GM Ceftriaxone Sodium (Rocephin 2gm Inj) 2 gm Q24H IVPB 12/08/24 20:00 12/18/24 19:59 Docusate Sodium (COLace 100MG CAP) 100 mg BID PRN PO c 12/07/24 21:00 01/06/25 20:59 Epoetin Jerry-epbx (Retacrit) 10,000 unit QTUTHSA[DIALYSIS] SQ 12/08/24 16:00 01/07/25 15:59 Famotidine (Pepcid 20mg Vial) 20 mg ONCE STAT IV 12/07/24 15:10 12/07/24 15:14 DC 12/07/24 16:07 20 MG Famotidine (Pepcid 20mg Vial) 20 mg Q48H IV 12/08/24 09:00 01/07/25 08:59 12/08/24 08:47 20 MG Furosemide (LASix 40MG VIAL) 40 mg DAILY IV 12/07/24 23:00 01/06/25 22:59 12/08/24 08:47 40 MG Guaifenesin (RobiTUSSin SUGAR-FREE 100 MG/ 5 ML UDCUP) 400 mg Q4HPRN PRN PO COUGH/COLD SYMPTOMS 12/08/24 04:00 01/07/25 03:59 Heparin Sodium (Porcine) (HEParin 5,000 UNIT VIAL) 5,000 unit Q12H SQ 12/07/24 21:00 01/06/25 20:59 12/08/24 08:54 5,000 UNIT Insulin Human Regular (humuLIN R 100 UNIT/ML 3ML) INSULIN SLIDING SCAL... ACHS SQ 12/07/24 21:00 01/06/25 20:59 Ipratropium [place] (AtrovENT UD) 0.5 mg [id number] PRN IH SHORTNESS OF BREATH/WHEEZING 12/07/24 21:00 01/06/25 20:59 12/07/24 21:49 0.5 MG Labetalol HCl (TRANdate 20MG SYG) 10 mg Q2H PRN IV SBP GREATER THAN 160 12/07/24 21:00 01/06/25 20:59 Lactulose (Constulose 20gm/ 30ml Udcup) 20 gm Q6H PRN PO CONSTIPATION 12/07/24 21:00 01/06/25 20:59 Metoprolol Succinate (TopROL XL) 50 mg DAILY PO 12/08/24 09:00 01/07/25 08:59 12/08/24 08:47 50 MG Ondansetron HCl (zoFRAN 4MG INJ) 4 mg ONCE STAT IVP 12/07/24 15:10 12/07/24 15:15 DC 12/07/24 16:07 4 MG Ondansetron HCl (zoFRAN 4MG INJ) 4 mg Q6H PRN IVP NAUSEA/VOMITING 12/07/24 21:00 01/06/25 20:59 Sevelamer HCl (RENAgel 800 MG TAB) 1,600 mg TIDMEALS PO 12/08/24 12:00 01/07/25 11:59 Sodium Bicarbonate (Sodium Bicarbonate) 650 mg BID PO 12/08/24 09:00 01/07/25 08:59 12/08/24 08:47 650 MG Sodium Chloride 1,000 ml @ 500 mls/hr Q2H STAT IV 12/07/24 15:10 12/07/24 17:09 DC 12/07/24 16:08 500 MLS/HR Temazepam (restORIL 15 MG CAP) 15 mg HS PRN PO INSOMNIA/SLEEP 12/07/24 21:00 01/06/25 20:59 Vitamin B Complex/ Vit C/Folic Acid (Nephrovite Tablet) 1 cap DAILY PO 12/08/24 09:00 01/07/25 08:59 12/08/24 08:47 1 CAP DIAGNOSTICS / RADIOLOGY: [ ] ASSESSMENT: CAP, POA, bilateral lower lung pneumonia, per chest x-ray and CT Acute complicated cystitis, POA Metabolic Acidosis, POA Acute epigastric pain, POA Acute vomiting, POA Acute febrile illness Leukocytosis, POA Anemia of chronic disease ESRD non dialysis, GFR 3 Diabetes mellitus with hyperglycemia Hypoalbuminemia Elevated lipase PLAN: -Admit to Medical floor with continuous telemetry monitoring -Monitor respiratory status closely. -Continue oxygen therapy as needed. Titrate oxygen prn to keep Spo2>/+=92%. -Albuterol and Atrovent q.6 hours scheduled. -Pulmicort 0.5 mg b.i.d. -Start Lasix 40 mg IV daily. -2 g of magnesium Blood culture pending Urine culture pending CT abdomen/pelvis showed bilateral left lower pneumonia. Proximal colonic diverticulosis. Nonobstructive umbilical hernia Chest x-ray showed bilateral lower lobe pneumonia PermCath placement pending 12/08/2024 Home medications reconciled by SHIPPING TECHNICIAN -Strict I&Os. -Daily weights. -Fluid restriction a 1200 mL. -Nephrology has been consulted by ED. We will follow Nephrology's recommendations. Continue azithromycin and Rocephin antibiotics -PRN medications for: Pain management, fever, hypertension, N/V, constipation. -Glucometer checks AC & HS needed with insulin regular sliding scale coverage as needed. -Blood pressure checks every 4 hours and as needed. - Monitor renal and liver function. -Monitor electrolytes and treat accordingly PRN -AM labs. -GI and DVT prophylaxis: Pepcid and heparin -Further plan/orders per hospitalization course. ATTESTATION BY PHYSICIAN I have seen and examined the patient. I reviewed the documentation, medical decision making, and treatment plan as noted by the mid-level provider above. I agree with the findings and plan of care. CUCA Evans MD CAUSTIC OPERATOR Dec 08, 2024 11:09
--- NOTE | 2024-12-08 11:47 | PN ---
NEPHROLOGY PROGRESS NOTE Date/Time Patient Seen: Dec 08, 2024 SUBJECTIVE: This is a 69-year-old female with a past medical history of chronic kidney disease, hypertension, diabetes mellitus type II, and hyperlipidemia. She presented to [facility] for evaluation of vomiting, chills, epigastric pain for the last two days. Vital Signs (last 8hr) Date Time Temp Pulse Resp B/P (MAP) Pulse Ox O2 Delivery O2 Flow Rate FiO2 12/08/24 11:33 79 19 N/A Room Air 21 12/08/24 08:00 98.1 89 18 119/62 93 Nasal Cannula 2.0 12/08/24 07:17 79 19 N/A Room Air 21 12/08/24 07:17 79 19 12/08/24 04:55 98.2 73 18 135/55 97 Room Air REVIEW OF SYSTEMS: GENERAL: Negative for any nausea, vomiting, fevers, chills, or weight loss. NEUROLOGIC: Negative for any blurry vision, blind spots, double vision, facial asymmetry, dysphagia, dysarthria, hemiparesis, hemisensory deficits, vertigo, ataxia. HEENT: Negative for any head trauma, neck trauma, neck stiffness, photophobia, phonophobia, sinusitis, rhinitis. CARDIAC: Negative for any chest pain, dyspnea on exertion, paroxysmal nocturnal dyspnea, peripheral edema. PULMONARY: Negative for any shortness of breath, wheezing, COPD, or TB exposure. GASTROINTESTINAL: Negative for any abdominal pain, nausea, vomiting, bright red blood per rectum, melena. GENITOURINARY: Negative for any dysuria, hematuria, incontinence. INTEGUMENTARY: Negative for any rashes, cuts, insect bites. RHEUMATOLOGIC: Negative for any joint pains, photosensitive rashes, history of vasculitis or kidney problems. HEMATOLOGIC: Negative for any abnormal bruising, frequent infections or bleeding. Current Medications Medications (Trade) Dose Ordered Sig/Julio Cesar Route Start Time Stop Time Status Last Admin Dose Admin Albuterol (DUOneb) 1 udvial [id number] IH 12/07/24 23:00 01/06/25 22:59 12/08/24 11:32 1 UDVIAL Amlodipine Besylate (NorvASC 5MG TAB) 10 mg DAILY PO 12/08/24 09:00 01/07/25 08:59 12/08/24 08:47 10 MG Azithromycin 250 ml @ 250 mls/hr Q24H IVPB 12/08/24 21:00 12/18/24 20:59 Azithromycin 250 ml @ 250 mls/hr Q24H STAT IVPB 12/07/24 19:19 12/07/24 20:18 DC 12/07/24 19:47 250 MLS/HR Budesonide (Pulmicort 0.5 Mg/2ml) 0.5 mg BIDRESP IH 12/08/24 06:00 01/07/25 05:59 12/08/24 07:17 0.5 MG Ceftriaxone Sodium (ROCEphine 1G INJ) 1 gm DAILY08 IVPB 12/08/24 08:00 12/08/24 04:05 DC Ceftriaxone Sodium (ROCEphine 1G INJ) 1 gm ONCE STAT IVPB 12/07/24 19:19 12/07/24 19:22 DC 12/07/24 19:34 1 GM Ceftriaxone Sodium (Rocephin 2gm Inj) 2 gm Q24H IVPB 12/08/24 20:00 12/18/24 19:59 Epoetin Jerry-epbx (Retacrit) 10,000 unit QTUTHSA[DIALYSIS] SQ 12/08/24 16:00 01/07/25 15:59 Famotidine (Pepcid 20mg Vial) 20 mg ONCE STAT IV 12/07/24 15:10 12/07/24 15:14 DC 12/07/24 16:07 20 MG Famotidine (Pepcid 20mg Vial) 20 mg Q48H IV 12/08/24 09:00 01/07/25 08:59 12/08/24 08:47 20 MG Furosemide (LASix 40MG VIAL) 40 mg DAILY IV 12/07/24 23:00 01/06/25 22:59 12/08/24 08:47 40 MG Heparin Sodium (Porcine) (HEParin 5,000 UNIT VIAL) 5,000 unit Q12H SQ 12/07/24 21:00 01/06/25 20:59 12/08/24 08:54 5,000 UNIT Insulin Human Regular (humuLIN R 100 UNIT/ML 3ML) INSULIN SLIDING SCAL... ACHS SQ 12/07/24 21:00 01/06/25 20:59 Metoprolol Succinate (TopROL XL) 50 mg DAILY PO 12/08/24 09:00 01/07/25 08:59 12/08/24 08:47 50 MG Ondansetron HCl (zoFRAN 4MG INJ) 4 mg ONCE STAT IVP 12/07/24 15:10 12/07/24 15:15 DC 12/07/24 16:07 4 MG Sevelamer HCl (RENAgel 800 MG TAB) 1,600 mg TIDMEALS PO 12/08/24 12:00 01/07/25 11:59 Sodium Bicarbonate (Sodium Bicarbonate) 650 mg BID PO 12/08/24 09:00 01/07/25 08:59 12/08/24 08:47 650 MG Sodium Chloride 1,000 ml @ 500 mls/hr Q2H STAT IV 12/07/24 15:10 12/07/24 17:09 DC 12/07/24 16:08 500 MLS/HR Vitamin B Complex/ Vit C/Folic Acid (Nephrovite Tablet) 1 cap DAILY PO 12/08/24 09:00 01/07/25 08:59 12/08/24 08:47 1 CAP Vital Signs (last 8hr) Date Time Temp Pulse Resp B/P (MAP) Pulse Ox O2 Delivery O2 Flow Rate FiO2 12/08/24 11:33 79 19 N/A Room Air 21 12/08/24 08:00 98.1 89 18 119/62 93 Nasal Cannula 2.0 12/08/24 07:17 79 19 N/A Room Air 21 12/08/24 07:17 79 19 12/08/24 04:55 98.2 73 18 135/55 97 Room Air PHYSICAL EXAM: GENERAL: Alert and oriented x 3. No acute distress. Well-nourished. EYES: EOMI. Anicteric. HENT: Moist mucous membranes. No scleral icterus. No cervical lymphadenopathy. LUNGS: Clear to auscultation bilaterally. No accessory muscle use. CARDIOVASCULAR: Regular rate and rhythm. No murmur. No JVD. ABDOMEN: Soft, non-tender and non-distended. No palpable masses. EXTREMITIES: No edema. Non-tender.?SKIN: No rashes or lesions. Warm. NEUROLOGIC: No focal neurological deficits. CN II-XII grossly intact, but not individually tested. PSYCHIATRIC: Cooperative. Appropriate mood and affect. Current Medications Medications (Trade) Dose Ordered Sig/Julio Cesar Route PRN Reason Start Time Stop Time Status Last Admin Dose Admin Acetaminophen (TYLenol 325MG TAB) 650 mg Q6H PRN PO FEVER/MILD PAIN LEVEL 1-3 12/07/24 21:00 01/06/25 20:59 Acetaminophen (TYLenol 650MG SUPPOSITORY) 650 mg Q6H PRN RC FEVER / MILD PAIN 1-3 IF NPO 12/07/24 21:00 01/06/25 20:59 Albuterol (DUOneb) 1 udvial [id number] IH 12/07/24 23:00 01/06/25 22:59 12/08/24 11:32 1 UDVIAL Albuterol Sulfate (Proventil 0.083% 2.5mg/3ml) 2.5 mg I3LAONS PRN IH SHORTNESS OF BREATH 12/07/24 21:00 01/06/25 20:59 12/07/24 21:49 2.5 MG Amlodipine Besylate (NorvASC 5MG TAB) 10 mg DAILY PO 12/08/24 09:00 01/07/25 08:59 12/08/24 08:47 10 MG Azithromycin 250 ml @ 250 mls/hr Q24H IVPB 12/08/24 21:00 12/18/24 20:59 Azithromycin 250 ml @ 250 mls/hr Q24H STAT IVPB 12/07/24 19:19 12/07/24 20:18 DC 12/07/24 19:47 250 MLS/HR Budesonide (Pulmicort 0.5 Mg/2ml) 0.5 mg BIDRESP IH 12/08/24 06:00 01/07/25 05:59 12/08/24 07:17 0.5 MG Ceftriaxone Sodium (ROCEphine 1G INJ) 1 gm DAILY08 IVPB 12/08/24 08:00 12/08/24 04:05 DC Ceftriaxone Sodium (ROCEphine 1G INJ) 1 gm ONCE STAT IVPB 12/07/24 19:19 12/07/24 19:22 DC 12/07/24 19:34 1 GM Ceftriaxone Sodium (Rocephin 2gm Inj) 2 gm Q24H IVPB 12/08/24 20:00 12/18/24 19:59 Docusate Sodium (COLace 100MG CAP) 100 mg BID PRN PO c 12/07/24 21:00 01/06/25 20:59 Epoetin Jerry-epbx (Retacrit) 10,000 unit QTUTHSA[DIALYSIS] SQ 12/08/24 16:00 01/07/25 15:59 Famotidine (Pepcid 20mg Vial) 20 mg ONCE STAT IV 12/07/24 15:10 12/07/24 15:14 DC 12/07/24 16:07 20 MG Famotidine (Pepcid 20mg Vial) 20 mg Q48H IV 12/08/24 09:00 01/07/25 08:59 12/08/24 08:47 20 MG Furosemide (LASix 40MG VIAL) 40 mg DAILY IV 12/07/24 23:00 01/06/25 22:59 12/08/24 08:47 40 MG Guaifenesin (RobiTUSSin SUGAR-FREE 100 MG/ 5 ML UDCUP) 400 mg Q4HPRN PRN PO COUGH/COLD SYMPTOMS 12/08/24 04:00 01/07/25 03:59 Heparin Sodium (Porcine) (HEParin 5,000 UNIT VIAL) 5,000 unit Q12H SQ 12/07/24 21:00 01/06/25 20:59 12/08/24 08:54 5,000 UNIT Insulin Human Regular (humuLIN R 100 UNIT/ML 3ML) INSULIN SLIDING SCAL... ACHS SQ 12/07/24 21:00 01/06/25 20:59 Ipratropium [place] (AtrovENT UD) 0.5 mg [id number] PRN IH SHORTNESS OF BREATH/WHEEZING 12/07/24 21:00 01/06/25 20:59 12/07/24 21:49 0.5 MG Labetalol HCl (TRANdate 20MG SYG) 10 mg Q2H PRN IV SBP GREATER THAN 160 12/07/24 21:00 01/06/25 20:59 Lactulose (Constulose 20gm/ 30ml Udcup) 20 gm Q6H PRN PO CONSTIPATION 12/07/24 21:00 01/06/25 20:59 Metoprolol Succinate (TopROL XL) 50 mg DAILY PO 12/08/24 09:00 01/07/25 08:59 12/08/24 08:47 50 MG Ondansetron HCl (zoFRAN 4MG INJ) 4 mg ONCE STAT IVP 12/07/24 15:10 12/07/24 15:15 DC 12/07/24 16:07 4 MG Ondansetron HCl (zoFRAN 4MG INJ) 4 mg Q6H PRN IVP NAUSEA/VOMITING 12/07/24 21:00 01/06/25 20:59 Sevelamer HCl (RENAgel 800 MG TAB) 1,600 mg TIDMEALS PO 12/08/24 12:00 01/07/25 11:59 Sodium Bicarbonate (Sodium Bicarbonate) 650 mg BID PO 12/08/24 09:00 01/07/25 08:59 12/08/24 08:47 650 MG Sodium Chloride 1,000 ml @ 500 mls/hr Q2H STAT IV 12/07/24 15:10 12/07/24 17:09 DC 12/07/24 16:08 500 MLS/HR Temazepam (restORIL 15 MG CAP) 15 mg HS PRN PO INSOMNIA/SLEEP 12/07/24 21:00 01/06/25 20:59 Vitamin B Complex/ Vit C/Folic Acid (Nephrovite Tablet) 1 cap DAILY PO 12/08/24 09:00 01/07/25 08:59 12/08/24 08:47 1 CAP LABORATORY: [ ] Hematology Labs: Test 12/08/24 07:38 12/07/24 15:38 Range/Units White Blood Count 7.9 4.8-10.8 K/uL Red Blood Count 2.66 L 4.00-5.50 MIL/uL Hemoglobin 6.9 *L 12.0-16.0 g/dL Hematocrit 20.4 *L 36-48 % Mean Corpuscular Volume 76.7 L 79-99 fL Mean Corpuscular Hemoglobin 25.9 L 27.0-33.0 pg Mean Corpuscular Hemoglobin Concent 33.8 32.0-36.0 g/dL Red Cell Distribution Width 16.3 H 11.0-15.5 % Platelet Count 170 130-400 K/uL Mean Platelet Volume 11.1 H 7.5-10.5 fL Nucleated Red Blood Cells 0.3 H 0.0-0.19 % Immature Granulocyte % (Auto) 1.2 H 0-1 % Neutrophils (%) (Auto) 90.5 H 40.0-77.0 % Lymphocytes (%) (Auto) 3.5 L 21.0-51.0 % Monocytes (%) (Auto) 4.1 3.0-13.0 % Eosinophils (%) (Auto) 0.5 0.0-8.0 % Basophils (%) (Auto) 0.2 0.0-5.0 % Neutrophils # (Auto) 11.7 H 1.8-7.7 K/uL Lymphocytes # (Auto) 0.5 L 1.0-4.8 K/uL Monocytes # (Auto) 0.5 0.1-1.0 K/uL Eosinophils # (Auto) 0.07 0.00-0.70 K/uL Basophils # (Auto) 0.02 0.00-0.20 K/uL Absolute Immature Granulocyte (auto 0.15 0-1 K/uL White Cell Morphology Comment See comments Chemistry Labs: Test 12/08/24 11:08 12/08/24 06:10 12/07/24 19:33 12/07/24 15:38 Range/Units Whole Blood Glucose 154 H 70-110 MG/DL Sodium Level 146 H 136-145 mmol/L Potassium Level 3.7 3.5-5.1 mmol/L Chloride Level 110 101-111 mmol/L Carbon Dioxide Level 10 *L 21-32 mmol/L Blood Urea Nitrogen 170 *H 7-18 mg/dL Creatinine 10.7 *H 0.5-1.0 mg/dL Glomerular Filtration Rate Calc 4 >90 mL/min Random Glucose 125 H 70-105 mg/dL Uric Acid 8.8 H 2.6-7.2 mg/dL Total Calcium 6.8 L 8.5-10.1 mg/dL Phosphorus Level 9.6 H 2.5-4.9 mg/dL Magnesium Level 1.30 L 1.80-2.40 mg/dL Iron Level 21 L 50-170 mcg/dL Total Iron Binding Capacity 180 L 250-450 mcg/dL Percent Iron Saturation 11.6 L 22-44 % Ferritin 52 15-150 ng/mL Total Bilirubin 0.3 # 0.2-1.0 mg/dL Aspartate Amino Transf (AST/SGOT) 7 L 10-37 U/L Alanine Aminotransferase (ALT/SGPT) 14 12-78 U/L Alkaline Phosphatase 80 50-136 U/L Total Protein 6.4 6.0-8.3 g/dL Albumin 2.7 L 3.5-5.0 g/dL Thyroid Stimulating Hormone (TSH) 1.66 0.36-3.74 uIU/mL Lactic Acid Level 1.1 0.8-2.5 mmol/L Direct Bilirubin 0.1 0.0-0.3 mg/dL Lipase 166 H 16-77 U/L DIAGNOSTICS / RADIOLOGY: REASON: pneumonia per abd CT ORDERING PHYSICIAN: VERONA CLARK [employer] WORKER PROCEDURE: CXR1VW - CHEST 1VW PORTABLE CHEST RADIOGRAPH INDICATION: pneumonia per abd CT COMPARISON: None FINDINGS: Heart size is normal. The pulmonary vascularity and mavis appear normal. Patchy bilateral lower lobe opacities, left greater than right, without consolidation. No significant pleural effusion noted. No pneumothorax detected. IMPRESSION: Bilateral lower lung pneumonia. DICTATED BY: MERA CARTER MD DATE: 12/07/242010 REASON: right flank pain ORDERING PHYSICIAN: PARKER SHEA NP PROCEDURE: ABD PEL WO - CT ABDOMEN/PELVIS W/O CONTRAST CT ABDOMEN WITHOUT CONTRAST. CT PELVIS WITHOUT CONTRAST. INDICATION: Right flank pain TECHNIQUE: Routine transaxial imaging using 5 mm slice thickness through the abdomen and pelvis without the administration of IV contrast. Thin slice reconstructions are also provided. Coronal and sagittal reformatted images acquired for interpretation. CT was performed with one or more of the following dose reduction techniques: Automated exposure control, adjustment of the mA and/or kV according to patient size, or use of iterative reconstruction technique. COMPARISON: None FINDINGS: ON NONCONTRAST IMAGING: ABDOMEN: Heart size is normal. Patchy opacities bilateral lower lobes No abnormal renal calcifications, hydronephrosis, perinephric inflammation, or proximal hydroureter detected. The liver is normal in size and smooth in contour without biliary duct dilation. The spleen is normal in size and attenuation. The gallbladder his absent. The pancreas appears normal without pancreatic duct dilation. The adrenal glands appear normal. No significant abdominal, retrocrural or retroperitoneal adenopathy noted. No evidence for intra-abdominal free air or organized fluid collection. Mild calcific plaque is noted along the abdominal aortic and iliac vessel ludwig without aneurysmal dilation. Tiny fat-containing nonobstructing umbilical hernia. PELVIS: No abnormal calcifications within the urinary bladder or distal ureters. No evidence for free air or organized pelvic fluid collection. No significant pelvic adenopathy detected. Several diverticula along the proximal colon. Terminal ileum appears unremarkable. The appendix appears normal. Visible osseous structures are intact. IMPRESSION: Bilateral lower lobe pneumonia. Proximal colonic diverticulosis. Tiny fat-containing nonobstructing umbilical hernia. DICTATED BY: MERA CARTER MD DATE: 12/07/241831 ASSESSMENT: Acute on chronic renal failure Anemia Metabolic Acidosis CAP Acute complicated cystitis Acute epigastric pain Acute vomiting Acute febrile illness Leukocytosis Diabetes mellitus Hypoalbuminemia Elevated lipase PLAN: [ ] ANDREW MORAN Dec 08, 2024 11:47
[2024-12-08 12:06] LABS: INR 1.11 (0.85-1.15)
[2024-12-08] MEDS: EPOETIN ALFA-EPBX (NON-ESRD) 10,000 UNIT/ML VIAL SQ SCH (16:00)
[2024-12-08] MEDS: MAGNESIUM 2GM PREMIX 50ML 50 ML IV PRN (17:56)
[2024-12-08] MEDS ORDERED: MAGNESIUM 2GM PREMIX 50ML 50 ML IV SCH (18:00)
[2024-12-08] MEDS: AZITHROMYCIN 500MG+NS 250ML 250 ML IVPB SCH (21:11)
[2024-12-09] VITALS (30 sets, daily range): BP systolic 107–162; BP diastolic 39–77; PULSE 64–98; RESP 12–20; TEMP 98–98.4; O2SAT 96–99
[2024-12-09 06:04] LABS: IMMATURE GRANULOCYTE ABSOLUTE 0.07 K/uL (0-1); NUCLEATED RED BLOOD CELLS 0.3 % (0.0-0.19); PLATELET COUNT (AUTO) 158 K/uL (130-400); RED BLOOD CELL COUNT(AUTO) 2.87 MIL/uL (4.00-5.50); RED CELL DISTRIBUTION WIDTH 16.8 % (11.0-15.5); WHITE BLOOD COUNT (AUTO) 8.0 K/uL (4.8-10.8)
[2024-12-09 06:27] LABS: ASPARTATE AMINOTRANSFERASE 10.0 U/L (10-37); GLOMERULAR FILTR. RATE CALC 3.0 mL/min (>90); GLUCOSE,RANDOM 117.0 mg/dL (70-105); PHOSPHORUS 8.3 mg/dL (2.5-4.9); SODIUM SERUM 146.0 mmol/L (136-145); TOTAL PROTEIN, SERUM 6.2 g/dL (6.0-8.3)
[2024-12-09 06:47] LABS: CREATININE 10.9 mg/dL (0.5-1.0); UREA NITROGEN, BLOOD 161.0 mg/dL (7-18)
--- NOTE | 2024-12-09 08:09 | PN ---
SUBJECTIVE: A 69-year-old female with diabetes mellitus and hypertension. The patient with a history of known chronic renal insufficiency. The patient had been refusing dialysis. The patient presents to the hospital with underlying failure to thrive. The patient has been having poor oral intake and generalized fatigue. revealed advanced renal dysfunction. The patient now is agreeable to proceed with dialysis and the patient is being seen for all of the above. REVIEW OF SYSTEMS: GENERAL: She is feeling weak and tired. HEENT: No change in vision. No change in hearing. No nasal discharge. No sore throat. CARDIOVASCULAR: No current chest pain or palpitations. PULMONARY: Denies any shortness of breath. GASTROINTESTINAL: As described above. MUSCULOSKELETAL: Complains of weakness. PHYSICAL EXAMINATION: VITAL SIGNS: Blood pressure is 119/62, pulse 80, afebrile. GENERAL: Chronically ill female, lying in bed on the medical floor. HEENT: Head is atraumatic. Pupils are equal, roving to light. Oropharynx is without exudate. Nares are clear. NECK: There is no JVP. There is no thyromegaly. No mass. CARDIOVASCULAR: Regular. There is no S3, S4, gallop. LUNGS: Coarse with equal thoracic movement. ABDOMEN: Soft, nondistended, and nontender. EXTREMITIES: Revealed no clubbing, no cyanosis. NEUROLOGICAL: She is awake. She is alert. LABORATORY DATA: Sodium 146, potassium 3.7, chloride 110, bicarbonate 10. BUN is 170, creatinine is 10. Iron levels are noted. Hemoglobin is 6.9, hematocrit 20. IMPRESSION: * Advanced renal dysfunction. * Diabetes mellitus. * Hypertension. * Anemia. * Acidosis. PLAN: I did have a long discussion with the patient. The patient now has agreed to proceed with dialysis. We will have Interventional Radiology to place a PermCath in anticipation of initiation of dialysis. The patient will be started on IV iron as well as Epogen for the anemia. The patient will also be started on Renvela for the hypophosphatemia. All labs can be repeated in the morning. The patient with multiple questions, all of which were answered. TID: [id number] RECEIPT: [id number]
[2024-12-09] MEDS ORDERED: MAGNESIUM 2GM PREMIX 50ML 50 ML IV SCH (10:30)
[2024-12-09] MEDS ORDERED: LIDOCAINE HCL 1% 20 ML VIAL ONE (10:34)
[2024-12-09] MEDS ORDERED: HEParin-NS 1,000 UNIT/500 ML 500 ML IV ONE (10:35)
[2024-12-09] MEDS ORDERED: MIDAZOLAM HCL 1 MG/ML 2ML VIAL ONE (11:08)
--- NOTE | 2024-12-09 13:28 | PN ---
DIALYSIS NOTE SUBJECTIVE: The patient was seen and evaluated on hemodialysis, prescription noted. OBJECTIVE: VITAL SIGNS: Blood pressure 110/74. CARDIOVASCULAR: Regular. LUNGS: Coarse. IMPRESSION: ESRD. PLAN: The patient will continue with dialysis as prescribed. The patient will be set up for outpatient dialysis. We will follow closely. TID: [id number] RECEIPT: [id number]
[2024-12-09] MEDS: 0.9%NACL 1000ML 1,000 ML IV SCH (14:30)
[2024-12-09] MEDS ORDERED: 0.9% NACL 250ML 250 ML IV SCH (14:30)
--- NOTE | 2024-12-09 14:38 | CCATH ---
TUNNELED DIALYSIS CATHETER PLACEMENT INDICATION: History of chronic kidney disease for hemodialysis. GYM MANAGER: Dr. Simon. TECHNIQUE: Informed consent was obtained after explaining the procedure and potential. Patient was placed supine on the angiographic table. Timeout performed. All elements of maximal sterile barrier technique, including hand hygiene, sterile gown, gloves and mask were utilized. The neck and chest were prepped and draped in sterile fashion. Under ultrasound and fluoroscopic guidance, access was gained into the internal jugular vein with a 21G needle. Over a wire, a peel-away sheath was deployed leaving its tip in the superior vena cava. Skin leonel made and entry site in the anterior/superior chest wall and a tunneling device was utilized to advance cm BioFlo Duramax catheter through the subcutaneous tissues and into the venotomy site. The catheter advanced through the sheath, which was peeled away. Catheter was heparin locked and secured to the skin with a suture. Sterile dressing applied. ANESTHETIC: 10 mL Lidocaine 1% SQ. BLOOD LOSS: < 5 mL. COMPLICATIONS: None. IMPRESSION: Successful PermCath placement in the right internal jugular vein. TID: [id number] RECEIPT: [id number]
--- NOTE | 2024-12-09 15:20 | PN ---
[facility] PROGRESS NOTE Date of Service: Dec 09, 2024 Time of Service: 15:[address] Lara SUBJECTIVE: [ 12/07 Ms. Kirby is a 69-year-old female who presented to [facility] ED for evaluation of vomiting, chills, epigastric pain for the last two days. Patient has a history of CKD non dialysis, hypertension diabetes cholesterol. Surgery includes cholecystectomy and . Denies any blood in emesis or stools. In ED patient was found to have bilateral lower lobe pneumonia from the CT abdomen and pelvis obtain. CT abdomen also showed proximal colonic diverticulosis. Tiny fat stranding nonobstructing umbilical hernia. WBCs were 12.9. UA was positive for leuk EST. BUN 180, creatinine 11.5, GFR three. ED let patient's cash register repairer Dr. Burt know of the patient, who will follow patient in the hospital. ED provider request patient be admitted with the diagnosis of CKD, anemia, pneumonia. I assessed the patient at bedside in room number 308. Patient's breathing was even, unlabored, in no distress. I informed the patient of labs, diagnostics, and plan of care. She verbalized understanding and is in agreement with the plan. Plan and assessment are listed below. 12/08 patient was seen by nurse practitioner and physician during rounding in room 308. Patient is pending PermCath placement today and dialysis afterwards as per cash register repairer. Today hemoglobin is 6.9 patient requiring one PRBC. Chest x-ray showed bilateral lower lobe pneumonia. CT abdomen/pelvis showed bilateral lower lobe pneumonia proximal colonic diverticulosis nonobstructive umbilical hernia. Patient's labs were reviewed. Patient continues to be on sodium bicarb. Urinalysis positive for leukocytosis. Blood culture and urine culture pending. Patient receive 2 g of magnesium. We will continue to monitor patient in the meantime. A.m. labs. 12/09 patient was seen by nurse practitioner and physician during rounding. Blood culture and urine culture still pending. WBC 7.9. Patient is s/p PermCath placement on 12/08/2024. Patient is pending his 1st dialysis today 12/09/2024. Case management is working on outpatient dialysis/chair. Patient denies any shortness of breath, chest pain, nausea, vomiting or any other discomfort at this moment. A.m. labs.] REVIEW OF SYSTEMS 12-point ROS reviewed with the patient. All pertinent positives mentioned above. Otherwise negative, noncontributory, non-pertinent. PHYSICAL EXAM GENERAL APPEARANCE: The patient is awake, alert, and oriented, in no acute cardiopulmonary distress. NEUROLOGICAL: Cranial nerves II-XII grossly intact. Motor is 5/5 in bilateral upper and lower extremities proximal to distal. No sensory deficits. HEENT: Face is symmetric. Pupils are equal and reactive. Extraocular movements are intact. NECK: Supple. No JVD. No thyromegaly. No submental, submandibular, pre-/pos tauricular, occipital or supraclavicular lymphadenopathy. CHEST: Normal chest expansion. No Telemetry. LUNGS: + wheezing. Breathing was even, unlabored, on room air CARDIOVASCULAR: Regular. S1 and S2 normal. No appreciable rubs, murmurs or gallops. ABDOMEN: Soft, nontender, and nondistended. Obese. There is no rebound, voluntary guarding, or rigidity. : Deferred. No Gupta. EXTREMITIES: Non-edematous and not cyanotic. No clubbing. Good capillary refill. SKIN: No skin breakdown. Vital Signs (last 8hr) Date Time Temp Pulse Resp B/P (MAP) Pulse Ox O2 Delivery O2 Flow Rate FiO2 12/09/24 13:15 85 18 128/61 98 Room Air 12/09/24 12:45 89 18 128/67 98 Room Air 12/09/24 12:30 85 18 118/60 98 Room Air 12/09/24 12:15 88 18 143/39 98 Room Air 12/09/24 12:00 82 18 133/53 98 Room Air 12/09/24 11:50 98.1 85 18 142/65 98 Room Air 12/09/24 08:08 98.2 98 18 118/54 97 Room Air LABS: Laboratory: Test 12/09/24 14:46 12/09/24 12:00 12/09/24 05:19 12/08/24 11:52 Range/Units Hemoglobin 8.2 L 12.0-16.0 g/dL Hematocrit 23.6 L 36-48 % Whole Blood Glucose 110 70-110 MG/DL White Blood Count 8.0 4.8-10.8 K/uL Red Blood Count 2.87 L 4.00-5.50 MIL/uL Mean Corpuscular Volume 80.5 79-99 fL Mean Corpuscular Hemoglobin 26.1 L 27.0-33.0 pg Mean Corpuscular Hemoglobin Concent 32.5 32.0-36.0 g/dL Red Cell Distribution Width 16.8 H 11.0-15.5 % Platelet Count 158 130-400 K/uL Mean Platelet Volume 11.8 H 7.5-10.5 fL Immature Granulocyte % (Auto) 0.9 0-1 % Neutrophils (%) (Auto) 79.4 H 40.0-77.0 % Lymphocytes (%) (Auto) 9.5 L 21.0-51.0 % Monocytes (%) (Auto) 8.8 3.0-13.0 % Eosinophils (%) (Auto) 1.1 0.0-8.0 % Basophils (%) (Auto) 0.3 0.0-5.0 % Neutrophils # (Auto) 6.4 1.8-7.7 K/uL Lymphocytes # (Auto) 0.8 L 1.0-4.8 K/uL Monocytes # (Auto) 0.7 0.1-1.0 K/uL Eosinophils # (Auto) 0.09 0.00-0.70 K/uL Basophils # (Auto) 0.02 0.00-0.20 K/uL Absolute Immature Granulocyte (auto 0.07 0-1 K/uL Nucleated Red Blood Cells 0.3 H 0.0-0.19 % Sodium Level 146 H 136-145 mmol/L Potassium Level 3.1 L 3.5-5.1 mmol/L Chloride Level 110 101-111 mmol/L Carbon Dioxide Level 10 *L 21-32 mmol/L Blood Urea Nitrogen 161 *H 7-18 mg/dL Creatinine 10.9 *H 0.5-1.0 mg/dL Glomerular Filtration Rate Calc 3 >90 mL/min Random Glucose 117 H 70-105 mg/dL Total Calcium 6.1 L 8.5-10.1 mg/dL Phosphorus Level 8.3 H 2.5-4.9 mg/dL Magnesium Level 1.50 L 1.80-2.40 mg/dL Total Bilirubin 0.3 0.2-1.0 mg/dL Aspartate Amino Transf (AST/SGOT) 10 10-37 U/L Alanine Aminotransferase (ALT/SGPT) 13 12-78 U/L Alkaline Phosphatase 70 50-136 U/L Total Protein 6.2 6.0-8.3 g/dL Albumin 2.5 L 3.5-5.0 g/dL Prothrombin Time 11.6 9.6-11.6 SEC Prothromb Time International Ratio 1.11 0.85-1.15 Activated Partial Thromboplast Time 33.0 26.3-35.5 SEC Test 12/08/24 06:10 12/08/24 04:46 12/08/24 04:30 12/08/24 02:05 Range/Units Uric Acid 8.8 H 2.6-7.2 mg/dL Iron Level 21 L 50-170 mcg/dL Total Iron Binding Capacity 180 L 250-450 mcg/dL Percent Iron Saturation 11.6 L 22-44 % Ferritin 52 15-150 ng/mL Thyroid Stimulating Hormone (TSH) 1.66 0.36-3.74 uIU/mL Blood Gas Specimen Type Arterial Arterial Blood pH 7.154 *L 7.350-7.450 Arterial Blood Partial Pressure CO2 16 *L 32-45 mmHg Arterial Blood Partial Pressure O2 114.3 H 83.0-108.0 mmHg Arterial Blood HCO3 5.5 L 21.0-28.0 mmol/L Arterial Blood Oxygen Saturation 97.1 94.0-98.0 % Arterial Blood Base Excess -21.3 L -2.0-3.0 mmol/L Hemoglobin (Blood Gas) 8.1 L 12.0-16.0 g/dL Sodium (Blood Gas) 141 136-145 MMOL/L Bedside Potassium (Blood Gas) 3.8 3.4-4.5 MMOL/L Bedside Chloride (Blood Gas) 115 H 98-107 MMOL/L Bedside Glucose (Blood Gas) 145 H 65-95 MG/DL Bedside Ionized Calcium (Blood Gas) 0.89 L 1.15-1.33 MMOL/L Bedside Lactic Acid (Blood Gas) 0.86 H 0.36-0.75 MMOL/L Blood Gas Temperature 37.0 35.5-37.0 CELSIUS Blood Gas Vent Mode RA ROOM AIR FiO2 21.0 % Blood Gas PEEP 5 cm H2O Blood Gas Specimen Comment RR, RNCYNTHIA Influenza Type A Antigen Negative For Type A NEGATIVE Influenza Type B Antigen Negative For Type B NEGATIVE SARS-CoV-2, RNA, NAAT NEGATIVE SARS CoV-2 NEGATIVE Group A Streptococcus Rapid negative NEGATIVE Urine Color COLORLESS YELLOW Urine Appearance CLEAR CLEAR Urine pH 5.5 5.0-8.0 Urine Specific [place] 1.009 1.001-1.031 Urine Protein 100 H NEGATIVE mg/dL Urine Glucose (UA) 50 H NEGATIVE mg/dL Urine Ketones NEGATIVE NEGATIVE mg/dL Urine Occult Blood SMALL H NEGATIVE Urine Nitrate NEGATIVE NEGATIVE Urine Bilirubin NEGATIVE NEGATIVE mg/dL Urine Urobilinogen 0.2 0.2-1.0 mg/dL Urine Leukocyte Esterase 250 H NEGATIVE Lito/uL Urine RBC 2-5 H 0-1 /HPF Urine WBC 26-50 H 0-1 /HPF Urine Squamous Epithelial Cells RARE 0-2 /HPF Urine Bacteria FEW None Seen /HPF Urine Osmolality 346 50-1200 mOsm/kg Urine Random Creatinine 43.26 30-135 mg/dL Urine Random Sodium 90 40-220 mmol/l Urine Random Potassium 17 L 25-125 mmol/L Urine Random Chloride 99 L 110-250 mmol/L Test 12/07/24 19:33 12/07/24 15:38 Range/Units Lactic Acid Level 1.1 0.8-2.5 mmol/L White Cell Morphology Comment See comments Direct Bilirubin 0.1 0.0-0.3 mg/dL Lipase 166 H 16-77 U/L Current Medications Medications (Trade) Dose Ordered Sig/Julio Cesar Route PRN Reason Start Time Stop Time Status Last Admin Dose Admin Acetaminophen (TYLenol 325MG TAB) 650 mg Q6H PRN PO FEVER/MILD PAIN LEVEL 1-3 12/07/24 21:00 01/06/25 20:59 12/08/24 16:53 650 MG Acetaminophen (TYLenol 650MG SUPPOSITORY) 650 mg Q6H PRN RC FEVER / MILD PAIN 1-3 IF NPO 12/07/24 21:00 01/06/25 20:59 Albuterol (DUOneb) 1 udvial [id number] IH 12/07/24 23:00 01/06/25 22:59 12/09/24 06:59 1 UDVIAL Albuterol Sulfate (Proventil 0.083% 2.5mg/3ml) 2.5 mg [id number] PRN IH SHORTNESS OF BREATH 12/07/24 21:00 01/06/25 20:59 12/07/24 21:49 2.5 MG Amlodipine Besylate (NorvASC 5MG TAB) 10 mg DAILY PO 12/08/24 09:00 12/09/24 12:44 DC 12/08/24 08:47 10 MG Azithromycin 250 ml @ 250 mls/hr Q24H IVPB 12/08/24 21:00 12/18/24 20:59 12/08/24 21:11 250 MLS/HR Azithromycin 250 ml @ 250 mls/hr Q24H STAT IVPB 12/07/24 19:19 12/07/24 20:18 DC 12/07/24 19:47 250 MLS/HR Budesonide (Pulmicort 0.5 Mg/2ml) 0.5 mg BIDRESP IH 12/08/24 06:00 01/07/25 05:59 12/09/24 06:59 0.5 MG Ceftriaxone Sodium (ROCEphine 1G INJ) 1 gm DAILY08 IVPB 12/08/24 08:00 12/08/24 04:05 DC Ceftriaxone Sodium (ROCEphine 1G INJ) 1 gm ONCE STAT IVPB 12/07/24 19:19 12/07/24 19:22 DC 12/07/24 19:34 1 GM Ceftriaxone Sodium (Rocephin 2gm Inj) 2 gm Q24H IVPB 12/08/24 20:00 12/18/24 19:59 12/08/24 19:57 2 GM Docusate Sodium (COLace 100MG CAP) 100 mg BID PRN PO c 12/07/24 21:00 01/06/25 20:59 Epoetin Jerry-epbx (Retacrit) 10,000 unit QTUTHSA[DIALYSIS] SQ 12/08/24 16:00 01/07/25 15:59 Famotidine (Pepcid 20mg Vial) 20 mg ONCE STAT IV 12/07/24 15:10 12/07/24 15:14 DC 12/07/24 16:07 20 MG Famotidine (Pepcid 20mg Vial) 20 mg Q48H IV 12/08/24 09:00 01/07/25 08:59 12/08/24 08:47 20 MG Furosemide (LASix 40MG VIAL) 40 mg DAILY IV 12/07/24 23:00 12/09/24 12:44 DC 12/08/24 08:47 40 MG Guaifenesin (RobiTUSSin SUGAR-FREE 100 MG/ 5 ML UDCUP) 400 mg Q4HPRN PRN PO COUGH/COLD SYMPTOMS 12/08/24 04:00 01/07/25 03:59 Heparin Sodium (Porcine) (HEParin 5,000 UNIT VIAL) 5,000 unit Q12H SQ 12/07/24 21:00 01/06/25 20:59 12/08/24 08:54 5,000 UNIT Insulin Human Regular (humuLIN R 100 UNIT/ML 3ML) INSULIN SLIDING SCAL... ACHS SQ 12/07/24 21:00 01/06/25 20:59 12/08/24 17:02 6 UNIT Ipratropium Salkum (AtrovENT UD) 0.5 mg [id number] PRN IH SHORTNESS OF BREATH/WHEEZING 12/07/24 21:00 01/06/25 20:59 12/07/24 21:49 0.5 MG Labetalol HCl (TRANdate 20MG SYG) 10 mg Q2H PRN IV SBP GREATER THAN 160 12/07/24 21:00 01/06/25 20:59 Lactulose (Constulose 20gm/ 30ml Udcup) 20 gm Q6H PRN PO CONSTIPATION 12/07/24 21:00 01/06/25 20:59 Magnesium Sulfate 50 ml @ 0 mls/hr PROTOCOL IV 12/08/24 18:00 12/08/24 17:39 DC Magnesium Sulfate 50 ml @ 0 mls/hr PROTOCOL IV 12/09/24 10:30 01/08/25 10:29 Magnesium Sulfate 50 ml @ 0 mls/hr PROTOCOL PRN IV MAG 12/08/24 18:00 12/09/24 10:20 DC 12/09/24 06:53 25 MLS/HR Metoprolol Succinate (TopROL XL) 50 mg DAILY PO 12/08/24 09:00 01/07/25 08:59 12/08/24 08:47 50 MG Ondansetron HCl (zoFRAN 4MG INJ) 4 mg ONCE STAT IVP 12/07/24 15:10 12/07/24 15:15 DC 12/07/24 16:07 4 MG Ondansetron HCl (zoFRAN 4MG INJ) 4 mg Q6H PRN IVP NAUSEA/VOMITING 12/07/24 21:00 01/06/25 20:59 Sevelamer HCl (RENAgel 800 MG TAB) 1,600 mg TIDMEALS PO 12/08/24 12:00 01/07/25 11:59 12/09/24 12:38 1,600 MG Sodium Bicarbonate (Sodium Bicarbonate) 650 mg BID PO 12/08/24 09:00 12/09/24 12:44 DC 12/08/24 19:58 650 MG Sodium Chloride 250 ml @ 0 mls/hr AD IV 12/09/24 14:30 01/08/25 14:29 Sodium Chloride 1,000 ml @ 0 mls/hr ONCE IV 12/09/24 14:30 01/08/25 14:29 Sodium Chloride 1,000 ml @ 500 mls/hr Q2H STAT IV 12/07/24 15:10 12/07/24 17:09 DC 12/07/24 16:08 500 MLS/HR Temazepam (restORIL 15 MG CAP) 15 mg HS PRN PO INSOMNIA/SLEEP 12/07/24 21:00 01/06/25 20:59 12/09/24 01:16 15 MG Vitamin B Complex/ Vit C/Folic Acid (Nephrovite Tablet) 1 cap DAILY PO 12/08/24 09:00 01/07/25 08:59 12/08/24 08:47 1 CAP DIAGNOSTICS / RADIOLOGY: [ ] ASSESSMENT: CAP, POA, bilateral lower lung pneumonia, per chest x-ray and CT Acute complicated cystitis, POA s/p PermCath placement 12/08/2024 Metabolic Acidosis, POA Acute epigastric pain, POA Acute vomiting, POA Acute febrile illness Leukocytosis, POA Anemia of chronic disease ESRD non dialysis, GFR 3 New diagnosis iron deficiency anemia Diabetes mellitus with hyperglycemia Hypoalbuminemia Elevated lipase PLAN: -Admit to Medical floor with continuous telemetry monitoring -Monitor respiratory status closely. -Continue oxygen therapy as needed. Titrate oxygen prn to keep Spo2>/+=92%. -Albuterol and Atrovent q.6 hours scheduled. -Pulmicort 0.5 mg b.i.d. Blood culture pending Urine culture pending CT abdomen/pelvis showed bilateral left lower pneumonia. Proximal colonic diverticulosis. Nonobstructive umbilical hernia Chest x-ray showed bilateral lower lobe pneumonia PermCath placement 12/08/2024 Home medications reconciled by GYPS[employer]CINER -Strict I&Os. -Daily weights. -Fluid restriction a 1200 mL. -Nephrology has been consulted by ED. We will follow Nephrology's recommendations. Continue azithromycin and Rocephin antibiotics -PRN medications for: Pain management, fever, hypertension, N/V, constipation. -Glucometer checks AC & HS needed with insulin regular sliding scale coverage as needed. -Blood pressure checks every 4 hours and as needed. - Monitor renal and liver function. -Monitor electrolytes and treat accordingly PRN -AM labs. -GI and DVT prophylaxis: Pepcid and heparin -Further plan/orders per hospitalization course. ATTESTATION BY PHYSICIAN I have seen and examined the patient. I reviewed the documentation, medical decision making, and treatment plan as noted by the mid-level provider above. I agree with the findings and plan of care. CUCA Evans MD PLATE PAINTER Dec 09, 2024 15:20
[2024-12-09 15:25] LABS: CREATININE 1.1 mg/dL (0.5-1.0); GLOMERULAR FILTR. RATE CALC 55.0 mL/min (>90); LDL DIRECT 83.0 mg/dL (0-99); UREA NITROGEN, BLOOD 12.0 mg/dL (7-18)
[2024-12-09 15:35] LABS: % IRON SATURATION 102.2 % (22-44); IRON, SERUM 181.0 mcg/dL (50-170)
[2024-12-09 15:49] LABS: HIV 1&2 ANTIBODY Non-Reactive (Negative)
--- NOTE | 2024-12-09 19:28 | HMCIMG ---
CHEST 1VW HISTORY: Hemodialysis patient COMPARISON: 12/07/2024 FINDINGS: A frontal projection of the chest was obtained. Mild bilateral pulmonary infiltrates are seen may be related to mild pulmonary vascular congestion with possible superimposed pneumonitis. The heart is borderline enlarged. Right venous catheter is seen. Degenerative changes are seen. Aortic calcifications are seen. IMPRESSION: 1. Mild bilateral pulmonary infiltrates are seen may be related to mild pulmonary vascular congestion with possible superimposed pneumonitis.
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
[2024-12-10] VITALS (26 sets, daily range): BP systolic 125–179; BP diastolic 48–75; PULSE 70–89; RESP 16–20; TEMP 98–98.7; O2SAT 96–97
[2024-12-10 04:20] LABS: IMMATURE GRANULOCYTE ABSOLUTE 0.07 K/uL (0-1); NUCLEATED RED BLOOD CELLS 0.0 % (0.0-0.19); PLATELET COUNT (AUTO) 174 K/uL (130-400); RED BLOOD CELL COUNT(AUTO) 2.90 MIL/uL (4.00-5.50); RED CELL DISTRIBUTION WIDTH 16.4 % (11.0-15.5); WHITE BLOOD COUNT (AUTO) 7.5 K/uL (4.8-10.8)
[2024-12-10 04:40] LABS: ASPARTATE AMINOTRANSFERASE 8.0 U/L (10-37); CREATININE 7.7 mg/dL (0.5-1.0); GLOMERULAR FILTR. RATE CALC 5.0 mL/min (>90); GLUCOSE,RANDOM 143.0 mg/dL (70-105); PHOSPHORUS 5.9 mg/dL (2.5-4.9); SODIUM SERUM 143.0 mmol/L (136-145); TOTAL PROTEIN, SERUM 6.4 g/dL (6.0-8.3)
[2024-12-10 04:49] LABS: UREA NITROGEN, BLOOD 93.0 mg/dL (7-18)
[2024-12-10 07:04] LABS: HEPATITIS B CORE AB TOTAL Non-Reactive (Nonreactive); HEPATITIS B SURFACE ANTIBODY Negative (Reactive)
[2024-12-10] MEDS ORDERED: 0.9%NACL 50ML IV SCH (11:00)
[2024-12-10] MEDS ORDERED: ZOSYN 3.375GM +NS 50ML IVPB SCH (11:00)
[2024-12-10] MEDS: PoTASSium chloRIDE 20MEQ ER 20 MEQ ERTAB PO ONE (13:02)
[2024-12-10] MEDS: CALCITRIOL 0.25 MCG CAP PO ONE (13:03)
--- NOTE | 2024-12-10 13:04 | PN ---
[facility] PROGRESS NOTE Date of Service: Dec 10, 2024 Time of Service: 13:[address] Lara SUBJECTIVE: [ 12/07 Ms. Kirby is a 69-year-old female who presented to [facility] ED for evaluation of vomiting, chills, epigastric pain for the last two days. Patient has a history of CKD non dialysis, hypertension diabetes cholesterol. Surgery includes cholecystectomy and . Denies any blood in emesis or stools. In ED patient was found to have bilateral lower lobe pneumonia from the CT abdomen and pelvis obtain. CT abdomen also showed proximal colonic diverticulosis. Tiny fat stranding nonobstructing umbilical hernia. WBCs were 12.9. UA was positive for leuk EST. BUN 180, creatinine 11.5, GFR three. ED let patient's energy consultant Dr. Burt know of the patient, who will follow patient in the hospital. ED provider request patient be admitted with the diagnosis of CKD, anemia, pneumonia. I assessed the patient at bedside in room number 308. Patient's breathing was even, unlabored, in no distress. I informed the patient of labs, diagnostics, and plan of care. She verbalized understanding and is in agreement with the plan. Plan and assessment are listed below. 12/08 patient was seen by nurse practitioner and physician during rounding in room 308. Patient is pending PermCath placement today and dialysis afterwards as per energy consultant. Today hemoglobin is 6.9 patient requiring one PRBC. Chest x-ray showed bilateral lower lobe pneumonia. CT abdomen/pelvis showed bilateral lower lobe pneumonia proximal colonic diverticulosis nonobstructive umbilical hernia. Patient's labs were reviewed. Patient continues to be on sodium bicarb. Urinalysis positive for leukocytosis. Blood culture and urine culture pending. Patient receive 2 g of magnesium. We will continue to monitor patient in the meantime. A.m. labs. 12/09 patient was seen by nurse practitioner and physician during rounding. Blood culture and urine culture still pending. WBC 7.9. Patient is s/p PermCath placement on 12/08/2024. Patient is pending his 1st dialysis today 12/09/2024. Case management is working on outpatient dialysis/chair. Patient denies any shortness of breath, chest pain, nausea, vomiting or any other discomfort at this moment. A.m. labs. 12/10 patient was seen by nurse practitioner and physician during rounding in room 308. Urine culture is growing Klebsiella pneumoniae. Patient was started on Zosyn. Due to iron-deficiency anemia patient was started on iron as well. Patient is s/p PermCath placement 12/09/2024. Mapping was already performed we will consult cardiovascular surgeon for AV fistula. Patient underwent dialysis yesterday 1.5 L was removed. At this moment patient is going through another dialysis. Patient denies any shortness of breath, chest pain, nausea, vomiting. We will continue to monitor patient in the meantime. A.m. labs.] REVIEW OF SYSTEMS 12-point ROS reviewed with the patient. All pertinent positives mentioned above. Otherwise negative, noncontributory, non-pertinent. PHYSICAL EXAM GENERAL APPEARANCE: The patient is awake, alert, and oriented, in no acute cardiopulmonary distress. NEUROLOGICAL: Cranial nerves II-XII grossly intact. Motor is 5/5 in bilateral upper and lower extremities proximal to distal. No sensory deficits. HEENT: Face is symmetric. Pupils are equal and reactive. Extraocular movements are intact. NECK: Supple. No JVD. No thyromegaly. No submental, submandibular, pre- /postauricular, occipital or supraclavicular lymphadenopathy. CHEST: Normal chest expansion. No Telemetry. LUNGS: + wheezing. Breathing was even, unlabored, on room air CARDIOVASCULAR: Regular. S1 and S2 normal. No appreciable rubs, murmurs or gallops. ABDOMEN: Soft, nontender, and nondistended. Obese. There is no rebound, voluntary guarding, or rigidity. : Deferred. No Gupta. EXTREMITIES: Non-edematous and not cyanotic. No clubbing. Good capillary refill. SKIN: No skin breakdown. Vital Signs (last 8hr) Date Time Temp Pulse Resp B/P (MAP) Pulse Ox O2 Delivery O2 Flow Rate FiO2 12/10/24 12:10 98.4 75 16 156/67 Room Air 12/10/24 12:00 98.4 85 16 162/68 Room Air 12/10/24 11:45 87 16 168/72 Room Air 12/10/24 11:31 75 20 12/10/24 11:30 80 16 178/70 Room Air 12/10/24 11:15 82 16 170/73 Room Air 12/10/24 11:13 98.4 73 18 165/70 97 Room Air 12/10/24 11:00 75 16 163/69 Room Air 12/10/24 10:45 83 16 165/70 Room Air 12/10/24 10:30 78 16 174/69 Room Air 12/10/24 10:15 70 16 179/69 Room Air 12/10/24 10:00 77 16 174/75 Room Air 12/10/24 09:45 76 16 170/70 Room Air 12/10/24 09:30 98.1 74 16 160/68 Room Air 12/10/24 08:50 98.1 78 16 172/66 Room Air 12/10/24 07:36 98.8 77 18 135/63 95 Room Air 12/10/24 06:55 89 20 N/A Room Air 21 LABS: Laboratory: Test 12/10/24 11:04 12/10/24 03:53 12/09/24 14:46 Range/Units Whole Blood Glucose 162 H 70-110 MG/DL White Blood Count 7.5 4.8-10.8 K/uL Red Blood Count 2.90 L 4.00-5.50 MIL/uL Hemoglobin 7.7 L 12.0-16.0 g/dL Hematocrit 22.8 L 36-48 % Mean Corpuscular Volume 78.6 L 79-99 fL Mean Corpuscular Hemoglobin 26.6 L 27.0-33.0 pg Mean Corpuscular Hemoglobin Concent 33.8 32.0-36.0 g/dL Red Cell Distribution Width 16.4 H 11.0-15.5 % Platelet Count 174 130-400 K/uL Mean Platelet Volume 11.8 H 7.5-10.5 fL Immature Granulocyte % (Auto) 0.9 0-1 % Neutrophils (%) (Auto) 77.7 H 40.0-77.0 % Lymphocytes (%) (Auto) 12.9 L 21.0-51.0 % Monocytes (%) (Auto) 6.7 3.0-13.0 % Eosinophils (%) (Auto) 1.7 0.0-8.0 % Basophils (%) (Auto) 0.1 0.0-5.0 % Neutrophils # (Auto) 5.8 1.8-7.7 K/uL Lymphocytes # (Auto) 1.0 1.0-4.8 K/uL Monocytes # (Auto) 0.5 0.1-1.0 K/uL Eosinophils # (Auto) 0.13 0.00-0.70 K/uL Basophils # (Auto) 0.01 0.00-0.20 K/uL Absolute Immature Granulocyte (auto 0.07 0-1 K/uL Nucleated Red Blood Cells 0.0 0.0-0.19 % Sodium Level 143 136-145 mmol/L Potassium Level 3.1 L 3.5-5.1 mmol/L Chloride Level 105 101-111 mmol/L Carbon Dioxide Level 18 L 21-32 mmol/L Blood Urea Nitrogen 93 #*H 7-18 mg/dL Creatinine 7.7 H 0.5-1.0 mg/dL Glomerular Filtration Rate Calc 5 >90 mL/min Random Glucose 143 H 70-105 mg/dL Total Calcium 6.7 L 8.5-10.1 mg/dL Phosphorus Level 5.9 #H 2.5-4.9 mg/dL Magnesium Level 1.70 L 1.80-2.40 mg/dL Total Bilirubin 0.2 # 0.2-1.0 mg/dL Aspartate Amino Transf (AST/SGOT) 8 L 10-37 U/L Alanine Aminotransferase (ALT/SGPT) 13 12-78 U/L Alkaline Phosphatase 74 50-136 U/L B-Type Natriuretic Peptide 261 H 0-100 pg/mL Total Protein 6.4 6.0-8.3 g/dL Albumin 2.5 L 3.5-5.0 g/dL Hemoglobin A1c 7.0 H 4.0-6.0 % Estimated Average Glucose (eAG) 154 H 70-126 mg/dL Iron Level 181 #H 50-170 mcg/dL Total Iron Binding Capacity 177 L 250-450 mcg/dL Percent Iron Saturation 102.2 H 22-44 % Ferritin 230 H 15-150 ng/mL Triglycerides Level 111 30-200 mg/dL Cholesterol Level 134 <200 mg/dL LDL Cholesterol 83 0-99 mg/dL HDL Cholesterol 35 35-85 mg/dL Hepatitis B Surface Antigen. Non-Reactive Nonreactive Hepatitis B Surface Antibody. Negative L Reactive Hepatitis B Core Total Antibody. Non-Reactive Nonreactive Hepatitis C Antibody Non-Reactive Nonreactive HIV (1&2) Antibody Non-Reactive Negative HIV P24 Antigen, Qualitative Non-Reactive Negative Current Medications Medications (Trade) Dose Ordered Sig/Julio Cesar Route PRN Reason Start Time Stop Time Status Last Admin Dose Admin Acetaminophen (TYLenol 325MG TAB) 650 mg Q6H PRN PO FEVER/MILD PAIN LEVEL 1-3 12/07/24 21:00 01/06/25 20:59 12/10/24 07:18 650 MG Acetaminophen (TYLenol 650MG SUPPOSITORY) 650 mg Q6H PRN RC FEVER / MILD PAIN 1-3 IF NPO 12/07/24 21:00 01/06/25 20:59 Albuterol (DUOneb) 1 udvial [id number] IH 12/07/24 23:00 01/06/25 22:59 12/10/24 11:30 1 UDVIAL Albuterol Sulfate (Proventil 0.083% 2.5mg/3ml) 2.5 mg [id number] PRN IH SHORTNESS OF BREATH 12/07/24 21:00 01/06/25 20:59 12/07/24 21:49 2.5 MG Amlodipine Besylate (NorvASC 5MG TAB) 10 mg DAILY PO 12/08/24 09:00 12/09/24 12:44 DC 12/08/24 08:47 10 MG Azithromycin 250 ml @ 250 mls/hr Q24H IVPB 12/08/24 21:00 12/10/24 10:53 DC 12/09/24 22:37 250 MLS/HR Azithromycin 250 ml @ 250 mls/hr Q24H STAT IVPB 12/07/24 19:19 12/07/24 20:18 DC 12/07/24 19:47 250 MLS/HR Budesonide (Pulmicort 0.5 Mg/2ml) 0.5 mg BIDRESP IH 12/08/24 06:00 01/07/25 05:59 12/10/24 11:30 0.5 MG Calcitriol (Rocaltrol 0.25mcg Cap) 0.25 mcg DAILY PO 12/11/24 09:00 01/10/25 08:59 Ceftriaxone Sodium (ROCEphine 1G INJ) 1 gm DAILY08 IVPB 12/08/24 08:00 12/08/24 04:05 DC Ceftriaxone Sodium (ROCEphine 1G INJ) 1 gm ONCE STAT IVPB 12/07/24 19:19 12/07/24 19:22 DC 12/07/24 19:34 1 GM Ceftriaxone Sodium (Rocephin 2gm Inj) 2 gm Q24H IVPB 12/08/24 20:00 12/10/24 10:53 DC 12/09/24 21:44 2 GM Docusate Sodium (COLace 100MG CAP) 100 mg BID PRN PO c 12/07/24 21:00 01/06/25 20:59 Epoetin Jerry-epbx (Retacrit) 10,000 unit QTUTHSA[DIALYSIS] SQ 12/08/24 16:00 01/07/25 15:59 Famotidine (Pepcid 20mg Vial) 20 mg ONCE STAT IV 12/07/24 15:10 12/07/24 15:14 DC 12/07/24 16:07 20 MG Famotidine (Pepcid 20mg Vial) 20 mg Q48H IV 12/08/24 09:00 01/07/25 08:59 12/10/24 09:09 20 MG Furosemide (LASix 40MG VIAL) 40 mg DAILY IV 12/07/24 23:00 12/09/24 12:44 DC 12/08/24 08:47 40 MG Guaifenesin (RobiTUSSin SUGAR-FREE 100 MG/ 5 ML UDCUP) 400 mg Q4HPRN PRN PO COUGH/COLD SYMPTOMS 12/08/24 04:00 01/07/25 03:59 Heparin Sodium (Porcine) (HEParin 5,000 UNIT VIAL) 5,000 unit Q12H SQ 12/07/24 21:00 01/06/25 20:59 12/10/24 09:07 5,000 UNIT Insulin Human Regular (humuLIN R 100 UNIT/ML 3ML) INSULIN SLIDING SCAL... ACHS SQ 12/07/24 21:00 01/06/25 20:59 12/08/24 17:02 6 UNIT Ipratropium Bicknell (AtrovENT UD) 0.5 mg [id number] PRN IH SHORTNESS OF BREATH/WHEEZING 12/07/24 21:00 01/06/25 20:59 12/07/24 21:49 0.5 MG Labetalol HCl (TRANdate 20MG SYG) 10 mg Q2H PRN IV SBP GREATER THAN 160 12/07/24 21:00 01/06/25 20:59 Lactulose (Constulose 20gm/ 30ml Udcup) 20 gm Q6H PRN PO CONSTIPATION 12/07/24 21:00 01/06/25 20:59 Magnesium Sulfate 50 ml @ 0 mls/hr PROTOCOL IV 12/08/24 18:00 12/08/24 17:39 DC Magnesium Sulfate 50 ml @ 0 mls/hr PROTOCOL IV 12/09/24 10:30 12/10/24 10:48 DC Magnesium Sulfate 50 ml @ 0 mls/hr PROTOCOL IV 12/10/24 11:00 01/09/25 10:59 Magnesium Sulfate 50 ml @ 0 mls/hr PROTOCOL PRN IV MAG 12/08/24 18:00 12/09/24 10:20 DC 12/09/24 06:53 25 MLS/HR Metoprolol Succinate (TopROL XL) 50 mg DAILY PO 12/08/24 09:00 01/07/25 08:59 12/08/24 08:47 50 MG Ondansetron HCl (zoFRAN 4MG INJ) 4 mg ONCE STAT IVP 12/07/24 15:10 12/07/24 15:15 DC 12/07/24 16:07 4 MG Ondansetron HCl (zoFRAN 4MG INJ) 4 mg Q6H PRN IVP NAUSEA/VOMITING 12/07/24 21:00 01/06/25 20:59 12/10/24 03:21 4 MG Piperacillin Sod/ Tazobactam Sod (Zosyn 3.375gm+NS 50ml) 3.375 gm Q12H IVPB 12/10/24 11:00 12/20/24 10:59 Sevelamer HCl (RENAgel 800 MG TAB) 1,600 mg TIDMEALS PO 12/08/24 12:00 01/07/25 11:59 12/10/24 09:09 1,600 MG Sodium Bicarbonate (Sodium Bicarbonate) 650 mg BID PO 12/08/24 09:00 12/09/24 12:44 DC 12/08/24 19:58 650 MG Sodium Chloride 250 ml @ 0 mls/hr AD IV 12/09/24 14:30 01/08/25 14:29 Sodium Chloride 1,000 ml @ 0 mls/hr ONCE IV 12/09/24 14:30 01/08/25 14:29 12/10/24 11:58 1,000 MLS/HR Sodium Chloride 1,000 ml @ 500 mls/hr Q2H STAT IV 12/07/24 15:10 12/07/24 17:09 DC 12/07/24 16:08 500 MLS/HR Sodium Chloride (NS 50ml) 50 ml AD IV 12/10/24 11:00 01/09/25 10:59 Temazepam (restORIL 15 MG CAP) 15 mg HS PRN PO INSOMNIA/SLEEP 12/07/24 21:00 01/06/25 20:59 12/09/24 22:44 15 MG Vitamin B Complex/ Vit C/Folic Acid (Nephrovite Tablet) 1 cap DAILY PO 12/08/24 09:00 01/07/25 08:59 12/10/24 09:09 1 CAP DIAGNOSTICS / RADIOLOGY: [ ] ASSESSMENT: CAP, POA, bilateral lower lung pneumonia, per chest x-ray and CT Acute complicated cystitis, POA s/p PermCath placement 12/08/2024 s/p 1st dialysis 12/09/251.5L removed s/p 2nd dialysis 12/10/24 Metabolic Acidosis, POA Acute epigastric pain, POA Acute vomiting, POA Acute febrile illness Leukocytosis, POA Anemia of chronic disease ESRD non dialysis, GFR 3 New diagnosis iron deficiency anemia Diabetes mellitus with hyperglycemia Hypoalbuminemia Elevated lipase PLAN: -Admit to Medical floor with continuous telemetry monitoring -Monitor respiratory status closely. -Continue oxygen therapy as needed. Titrate oxygen prn to keep Spo2>/+=92%. -Albuterol and Atrovent q.6 hours scheduled. -Pulmicort 0.5 mg b.i.d. Blood culture pending Urine culture came back positive for Klebsiella pneumoniae CT abdomen/pelvis showed bilateral left lower pneumonia. Proximal colonic diverticulosis. Nonobstructive umbilical hernia Chest x-ray showed bilateral lower lobe pneumonia PermCath placement 12/08/2024 1st dialysis 12/09/251.5 L removed. Second dialysis 12/10/2024 Mapping performed 12/09/2024 We will consult cardiovascular surgeon for AV fistula -Strict I&Os. -Daily weights. -Fluid restriction a 1200 mL. We will continue energy consultant recommendations Azithromycin Rocephin discontinued. Patient is started on Zosyn -PRN medications for: Pain management, fever, hypertension, N/V, constipation. -Glucometer checks AC & HS needed with insulin regular sliding scale coverage as needed. -Blood pressure checks every 4 hours and as needed. - Monitor renal and liver function. -Monitor electrolytes and treat accordingly PRN -AM labs. -GI and DVT prophylaxis: Pepcid and heparin -Further plan/orders per hospitalization course. ATTESTATION BY PHYSICIAN I have seen and examined the patient. I reviewed the documentation, medical decision making, and treatment plan as noted by the mid-level provider above. I agree with the findings and plan of care. CUCA Evans MD COMMUNICATIONS INTERN Dec 10, 2024 13:04
[2024-12-10] MEDS: ZOSYN 3.375GM +NS 50ML IVPB SCH (13:24)
--- NOTE | 2024-12-10 13:32 | NUR ---
[facility] Consult: Patient assessed by wound healing team. See wound assessment. Assessment and recommendations provided. Education provided. Addendum: 12/10/24 at 1532 by ROBER WISEMAN RN RN/KINGSLEY Amended: Links added.
[2024-12-10] MEDS: MAGNESIUM 2GM PREMIX 50ML 50 ML IV SCH (20:40)
--- NOTE | 2024-12-10 21:30 | PN ---
DIALYSIS NOTE SUBJECTIVE: The patient is seen and evaluated on hemodialysis. Prescription noted. PHYSICAL EXAMINATION: VITAL SIGNS: Blood pressure 135/63. CARDIOVASCULAR: Regular. LUNGS: Coarse. IMPRESSION: End-stage renal disease. PLAN: The patient will continue with maximum ultrafiltration as blood pressure allows. The patient will be set up for outpatient dialysis. We will have surgery evaluated for ____ access. We will follow closely. TID: [id number] RECEIPT: [id number]
[2024-12-11] VITALS (28 sets, daily range): BP systolic 132–175; BP diastolic 54–82; PULSE 64–88; RESP 14–20; TEMP 98.1–99.5; O2SAT 95–99
--- NOTE | 2024-12-11 00:35 | PN ---
SUBJECTIVE: The patient has new-onset hemodialysis for end-stage renal disease. She is receiving hemodialysis via a PermCath. She does not have an established schedule at this time. Cardiovascular surgery was consulted for long-term hemodialysis access. OBJECTIVE: GENERAL: On exam, the patient is a pleasant elderly female, in no apparent distress. HEENT: Reveals normocephalic, atraumatic. Extraocular movements intact. HEART: S1, S2 and regular. LUNGS: Unlabored at rest. ABDOMEN: Reveals [id number] obesity with positive bowel sounds. EXTREMITIES: The patient is right-handed. She has an IV in the right upper extremity. Her left upper extremity does not show visible veins; however, she has had vein mapping and appears as though she has mapped out a cephalic vein and part of the basilic vein. ASSESSMENT AND PLAN: End-stage renal disease, requiring long-term hemodialysis access. We will plan a left upper extremity arteriovenous graft on a non-dialysis day. TID: [id number] RECEIPT: [id number]
[2024-12-11 06:40] LABS: IMMATURE GRANULOCYTE ABSOLUTE 0.15 K/uL (0-1); NUCLEATED RED BLOOD CELLS 0.0 % (0.0-0.19); PLATELET COUNT (AUTO) 155 K/uL (130-400); RED BLOOD CELL COUNT(AUTO) 3.03 MIL/uL (4.00-5.50); RED CELL DISTRIBUTION WIDTH 16.2 % (11.0-15.5); WHITE BLOOD COUNT (AUTO) 7.4 K/uL (4.8-10.8)
[2024-12-11 06:56] LABS: ASPARTATE AMINOTRANSFERASE 16.0 U/L (10-37); CREATININE 5.7 mg/dL (0.5-1.0); GLOMERULAR FILTR. RATE CALC 8.0 mL/min (>90); GLUCOSE,RANDOM 141.0 mg/dL (70-105); SODIUM SERUM 142.0 mmol/L (136-145); TOTAL PROTEIN, SERUM 6.2 g/dL (6.0-8.3); UREA NITROGEN, BLOOD 56.0 mg/dL (7-18)
--- NOTE | 2024-12-11 08:01 | NUR ---
PATIENT UPDATE DR. FISCHER HERE LAST NIGHT AT 2030 TO SEE THE PATIENT FOR CONSULT REGARDING AV GRAFT PLACEMENT. PATIENT SEEN AND EXAMINED AND EXPLAINED THE PLAN OF CARE. HE SAID THAT HE WILL SCHEDULE THE PROCEDURE SOMETIME NEXT WEEK. PT SLEPT BETTER LAST NIGHT, NO COMPLAINTS OF NAUSEA AND VOMITING, NO NECK DISCOMFORT LIKE THE 2 DAYS PRIOR. PATIENT SCHEDULED FOR THE 3RD ROUND OF HEMODIALYSIS TODAY.
--- NOTE | 2024-12-11 09:25 | PN ---
SUBJECTIVE: The patient is seen and evaluated on hemodialysis. Prescription noted. OBJECTIVE: VITAL SIGNS: Blood pressure 134/54. CARDIOVASCULAR: Regular. LUNGS: Coarse. IMPRESSION: End-stage renal disease. PLAN: The patient continues with dialysis as prescribed. The patient is being set up for outpatient dialysis. The patient remains on Epogen for the anemia. All labs will be repeated in the morning. TID: [id number] RECEIPT: [id number]
[2024-12-11] MEDS: CALCITRIOL 0.25 MCG CAP PO SCH (12:42)
--- NOTE | 2024-12-11 14:56 | NUR ---
Discharge Planninrd flowsheet sent to [facility] admissions. Pending insurance authorization.
[2024-12-11] MEDS: HONEY 1 APPL/ML TUBE TP SCH (15:36)
--- NOTE | 2024-12-11 15:47 | NUR ---
WOUND CARE WOUND CARE WAS PERFORMED TO RIGHT LABIA. DUE TO LOCATION OF WOUND TAPE WAS NOT APPLIED. MEDIHONEY WAS PLACED ON GAUZE AND PLACED AT SITE. PATIENT WAS ABLE TO PERFORM THE ACTION AND WILL CONTINUE TO REAPPLY AFTER USING THE RESTROOM SINCE DUE TO SITE THE DRESSING WILL FALL OFF.
[2024-12-11] MEDS: PROMETHAZINE HCL 25 MG/ML 1ML AMPULE IM ONE (16:30)
[2024-12-11] MEDS ORDERED: PROMETHAZINE HCL 25 MG/ML 1ML AMPULE IM PRN (17:30)
[2024-12-12] VITALS (12 sets, daily range): BP systolic 140–153; BP diastolic 56–65; PULSE 69–81; RESP 16–21; TEMP 98.3–99; O2SAT 94–97
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
--- NOTE | 2024-12-12 13:49 | PN ---
[facility] PROGRESS NOTE Date of Service: Dec 12, 2024 Time of Service: 13:31 SUBJECTIVE: [Ms. Kirby, a 69-year-old female with a history of CKD (non-dialysis), hypertension, diabetes, and hypercholesterolemia, initially presented with vomiting, chills, and epigastric pain. Imaging revealed bilateral lower lobe pneumonia and proximal colonic diverticulosis. Lab results showed elevated WBCs, BUN, and creatinine, indicating severe renal impairment. She was admitted with diagnoses of CKD, anemia, UTI and pneumonia. Over the following days, Ms. Kirby underwent PermCath placement and began dialysis. She received a blood transfusion for anemia and was started on sodium bicarbonate and magnesium supplementation. Urine cultures identified Klebsiella pneumoniae, and she was treated with Zosyn. An iron supplement was initiated for iron-deficiency anemia. Ms. Kirby has tolerated dialysis well, with plans for an AV graft. She continues to receive IV antibiotics for pneumonia, with crackles still present on examination. A right labial abscess is being treated with Bactroban. She remains stable, without acute distress, and denies any significant discomfort. Monitoring and follow-up imaging are ongoing.] REVIEW OF SYSTEMS 12-point ROS reviewed with the patient. All pertinent positives mentioned above. Otherwise negative, noncontributory, non-pertinent. PHYSICAL EXAM GENERAL APPEARANCE: The patient is awake, alert, and oriented, in no acute ca rdiopulmonary distress. NEUROLOGICAL: Cranial nerves II-XII grossly intact. Motor is 5/5 in bilateral upper and lower extremities proximal to distal. No sensory deficits. HEENT: Face is symmetric. Pupils are equal and reactive. Extraocular movements are intact. NECK: Supple. No JVD. No thyromegaly. No submental, submandibular, pre- /postauricular, occipital or supraclavicular lymphadenopathy. CHEST: Normal chest expansion. No Telemetry. LUNGS: + wheezing. Breathing was even, unlabored, on room air CARDIOVASCULAR: Regular. S1 and S2 normal. No appreciable rubs, murmurs or gallops. ABDOMEN: Soft, nontender, and nondistended. Obese. There is no rebound, voluntary guarding, or rigidity. : Deferred. No Gupta. EXTREMITIES: Non-edematous and not cyanotic. No clubbing. Good capillary refill. SKIN: No skin breakdown. Vital Signs (last 8hr) Date Time Temp Pulse Resp B/P (MAP) Pulse Ox O2 Delivery O2 Flow Rate FiO2 12/12/24 12:05 98.8 73 18 153/65 96 12/12/24 11:18 81 16 N/A Room Air 21 12/12/24 11:18 81 16 12/12/24 08:00 98.2 76 18 146/56 99 Room Air 21 12/12/24 06:53 70 16 12/12/24 06:52 70 20 N/A Room Air 21 LABS: Laboratory: Test 12/12/24 05:25 12/11/24 06:23 Range/Units Whole Blood Glucose 81 # 70-110 MG/DL White Blood Count 7.4 4.8-10.8 K/uL Red Blood Count 3.03 L 4.00-5.50 MIL/uL Hemoglobin 8.0 L 12.0-16.0 g/dL Hematocrit 24.5 L 36-48 % Mean Corpuscular Volume 80.9 79-99 fL Mean Corpuscular Hemoglobin 26.4 L 27.0-33.0 pg Mean Corpuscular Hemoglobin Concent 32.7 32.0-36.0 g/dL Red Cell Distribution Width 16.2 H 11.0-15.5 % Platelet Count 155 130-400 K/uL Mean Platelet Volume 11.1 H 7.5-10.5 fL Immature Granulocyte % (Auto) 2.0 H 0-1 % Neutrophils (%) (Auto) 65.6 40.0-77.0 % Lymphocytes (%) (Auto) 18.1 L 21.0-51.0 % Monocytes (%) (Auto) 10.0 3.0-13.0 % Eosinophils (%) (Auto) 3.9 0.0-8.0 % Basophils (%) (Auto) 0.4 0.0-5.0 % Neutrophils # (Auto) 4.8 1.8-7.7 K/uL Lymphocytes # (Auto) 1.3 1.0-4.8 K/uL Monocytes # (Auto) 0.7 0.1-1.0 K/uL Eosinophils # (Auto) 0.29 0.00-0.70 K/uL Basophils # (Auto) 0.03 0.00-0.20 K/uL Absolute Immature Granulocyte (auto 0.15 0-1 K/uL Nucleated Red Blood Cells 0.0 0.0-0.19 % Sodium Level 142 136-145 mmol/L Potassium Level 3.2 L 3.5-5.1 mmol/L Chloride Level 103 101-111 mmol/L Carbon Dioxide Level 26 21-32 mmol/L Blood Urea Nitrogen 56 H 7-18 mg/dL Creatinine 5.7 H 0.5-1.0 mg/dL Glomerular Filtration Rate Calc 8 >90 mL/min Random Glucose 141 H 70-105 mg/dL Total Calcium 7.2 L 8.5-10.1 mg/dL Magnesium Level 2.60 H 1.80-2.40 mg/dL Total Bilirubin 0.3 0.2-1.0 mg/dL Aspartate Amino Transf (AST/SGOT) 16 10-37 U/L Alanine Aminotransferase (ALT/SGPT) 13 12-78 U/L Alkaline Phosphatase 74 50-136 U/L Total Protein 6.2 6.0-8.3 g/dL Albumin 2.5 L 3.5-5.0 g/dL Current Medications Medications (Trade) Dose Ordered Sig/Julio Cesar Route PRN Reason Start Time Stop Time Status Last Admin Dose Admin Acetaminophen (TYLenol 325MG TAB) 650 mg Q6H PRN PO FEVER/MILD PAIN LEVEL 1-3 12/07/24 21:00 01/06/25 20:59 12/10/24 07:18 650 MG Acetaminophen (TYLenol 650MG SUPPOSITORY) 650 mg Q6H PRN RC FEVER / MILD PAIN 1-3 IF NPO 12/07/24 21:00 01/06/25 20:59 Albuterol (DUOneb) 1 udvial [id number] IH 12/07/24 23:00 01/06/25 22:59 12/12/24 11:17 1 UDVIAL Albuterol Sulfate (Proventil 0.083% 2.5mg/3ml) 2.5 mg [id number] PRN IH SHORTNESS OF BREATH 12/07/24 21:00 01/06/25 20:59 12/07/24 21:49 2.5 MG Amlodipine Besylate (NorvASC 5MG TAB) 10 mg DAILY PO 12/08/24 09:00 12/09/24 12:44 DC 12/08/24 08:47 10 MG Azithromycin 250 ml @ 250 mls/hr Q24H IVPB 12/08/24 21:00 12/10/24 10:53 DC 12/09/24 22:37 250 MLS/HR Azithromycin 250 ml @ 250 mls/hr Q24H STAT IVPB 12/07/24 19:19 12/07/24 20:18 DC 12/07/24 19:47 250 MLS/HR Budesonide (Pulmicort 0.5 Mg/2ml) 0.5 mg BIDRESP IH 12/08/24 06:00 01/07/25 05:59 12/12/24 06:51 0.5 MG Calcitriol (Rocaltrol 0.25mcg Cap) 0.25 mcg DAILY PO 12/11/24 09:00 01/10/25 08:59 12/12/24 08:49 0.25 MCG Ceftriaxone Sodium (ROCEphine 1G INJ) 1 gm DAILY08 IVPB 12/08/24 08:00 12/08/24 04:05 DC Ceftriaxone Sodium (ROCEphine 1G INJ) 1 gm ONCE STAT IVPB 12/07/24 19:19 12/07/24 19:22 DC 12/07/24 19:34 1 GM Ceftriaxone Sodium (Rocephin 2gm Inj) 2 gm Q24H IVPB 12/08/24 20:00 12/10/24 10:53 DC 12/09/24 21:44 2 GM Docusate Sodium (COLace 100MG CAP) 100 mg BID PRN PO c 12/07/24 21:00 01/06/25 20:59 12/11/24 20:43 100 MG Epoetin Jerry-epbx (Retacrit) 10,000 unit QTUTHSA[DIALYSIS] SQ 12/08/24 16:00 01/07/25 15:59 12/10/24 17:46 10,000 UNIT Famotidine (Pepcid 20mg Vial) 20 mg ONCE STAT IV 12/07/24 15:10 12/07/24 15:14 DC 12/07/24 16:07 20 MG Famotidine (Pepcid 20mg Vial) 20 mg Q48H IV 12/08/24 09:00 01/07/25 08:59 12/12/24 08:49 20 MG Furosemide (LASix 40MG VIAL) 40 mg DAILY IV 12/07/24 23:00 12/09/24 12:44 DC 12/08/24 08:47 40 MG Guaifenesin (RobiTUSSin SUGAR-FREE 100 MG/ 5 ML UDCUP) 400 mg Q4HPRN PRN PO COUGH/COLD SYMPTOMS 12/08/24 04:00 01/07/25 03:59 Heparin Sodium (Porcine) (HEParin 5,000 UNIT VIAL) 5,000 unit Q12H SQ 12/07/24 21:00 01/06/25 20:59 12/12/24 09:00 5,000 UNIT Heparin Sodium (Porcine) (HEParin 5,000 UNIT VIAL) 10,000 unit AD IRRIG 12/11/24 09:00 01/10/25 08:59 12/11/24 09:37 10,000 UNIT Insulin Human Regular (humuLIN R 100 UNIT/ML 3ML) INSULIN SLIDING SCAL... ACHS SQ 12/07/24 21:00 01/06/25 20:59 12/11/24 20:44 12 UNIT Ipratropium Taylor (AtrovENT UD) 0.5 mg [id number] PRN IH SHORTNESS OF BREATH/WHEEZING 12/07/24 21:00 01/06/25 20:59 12/10/24 18:58 0.5 MG Labetalol HCl (TRANdate 20MG SYG) 10 mg Q2H PRN IV SBP GREATER THAN 160 12/07/24 21:00 01/06/25 20:59 Lactulose (Constulose 20gm/ 30ml Udcup) 20 gm Q6H PRN PO CONSTIPATION 12/07/24 21:00 01/06/25 20:59 Leptospermum Honey ([facility]) 1 APPLICATION DAILY TP 12/11/24 15:32 12/12/24 13:31 DC 12/12/24 08:49 1 APPL Magnesium Sulfate 50 ml @ 0 mls/hr PROTOCOL IV 12/08/24 18:00 12/08/24 17:39 DC Magnesium Sulfate 50 ml @ 0 mls/hr PROTOCOL IV 12/09/24 10:30 12/10/24 10:48 DC Magnesium Sulfate 50 ml @ 0 mls/hr PROTOCOL IV 12/10/24 11:00 01/09/25 10:59 12/10/24 20:40 25 MLS/HR Magnesium Sulfate 50 ml @ 0 mls/hr PROTOCOL PRN IV MAG 12/08/24 18:00 12/09/24 10:20 DC 12/09/24 06:53 25 MLS/HR Metoprolol Succinate (TopROL XL) 50 mg DAILY PO 12/08/24 09:00 01/07/25 08:59 12/12/24 08:49 50 MG Mupirocin (Bactroban Oint) 1 APPL TID TP 12/12/24 14:00 01/11/25 13:59 UNV Ondansetron HCl (zoFRAN 4MG INJ) 4 mg ONCE STAT IVP 12/07/24 15:10 12/07/24 15:15 DC 12/07/24 16:07 4 MG Ondansetron HCl (zoFRAN 4MG INJ) 4 mg Q6H PRN IVP NAUSEA/VOMITING 12/07/24 21:00 01/06/25 20:59 12/11/24 13:37 4 MG Piperacillin Sod/ Tazobactam Sod (Zosyn 3.375gm+NS 50ml) 3.375 gm Q12H IVPB 12/10/24 11:00 12/10/24 13:03 DC Piperacillin Sod/ Tazobactam Sod (Zosyn 3.375gm+NS 50ml) 3.375 gm Q12H IVPB 12/10/24 13:30 12/20/24 13:29 12/12/24 01:33 3.375 GM Promethazine HCl (Phenergan) 12.5 mg Q4HPRN PRN IM NAUSEA 12/11/24 17:30 01/10/25 17:29 Sevelamer HCl (RENAgel 800 MG TAB) 1,600 mg TIDMEALS PO 12/08/24 12:00 01/07/25 11:59 12/12/24 12:29 1,600 MG Sodium Bicarbonate (Sodium Bicarbonate) 650 mg BID PO 12/08/24 09:00 12/09/24 12:44 DC 12/08/24 19:58 650 MG Sodium Chloride 250 ml @ 0 mls/hr AD IV 12/09/24 14:30 01/08/25 14:29 Sodium Chloride 1,000 ml @ 0 mls/hr ONCE IV 12/09/24 14:30 01/08/25 14:29 12/11/24 09:38 100 MLS/HR Sodium Chloride 1,000 ml @ 500 mls/hr Q2H STAT IV 12/07/24 15:10 12/07/24 17:09 DC 12/07/24 16:08 500 MLS/HR Sodium Chloride (NS 50ml) 50 ml AD IV 12/10/24 11:00 12/11/24 16:19 DC Temazepam (restORIL 15 MG CAP) 15 mg HS PRN PO INSOMNIA/SLEEP 12/07/24 21:00 01/06/25 20:59 12/11/24 23:49 15 MG Vitamin B Complex/ Vit C/Folic Acid (Nephrovite Tablet) 1 cap DAILY PO 12/08/24 09:00 01/07/25 08:59 12/12/24 08:49 1 CAP DIAGNOSTICS / RADIOLOGY: [ ] ASSESSMENT: Abscess to Right labia, POA CAP, POA, bilateral lower lung pneumonia, per chest x-ray and CT Acute complicated cystitis, POA positive with Klebsiella pneumoniae s/p PermCath placement 12/08/2024 s/p 1st dialysis 12/09/251.5L removed s/p 2nd dialysis 12/10/24 Metabolic Acidosis, POA Acute epigastric pain, POA Acute vomiting, POA Acute febrile illness Leukocytosis, POA Anemia of chronic disease ESRD non dialysis, GFR 3 New diagnosis iron deficiency anemia Diabetes mellitus with hyperglycemia Hypoalbuminemia Elevated lipase PLAN: Admit to Medical Floor: Continuous telemetry monitoring. Right Labia Abscess: Previously drained, now with induration. Start Bactroban topical application three times daily. Respiratory Monitoring: Monitor respiratory status closely. Continue oxygen therapy as needed, titrating to maintain SpO2 ? 92%. Respiratory Medications: Administer Albuterol and Atrovent every 6 hours as scheduled. Pulmicort 0.5 mg twice daily. Cultures: Blood culture pending. Urine culture positive for Klebsiella pneumoniae. Imaging: CT abdomen/pelvis shows bilateral lower lobe pneumonia, proximal colonic diverticulosis, and a nonobstructive umbilical hernia. Chest X-ray confirms bilateral lower lobe pneumonia. Repeat chest X-ray today. Dialysis: PermCath placed on 12/08/2024. First dialysis on 12/09/2024 with 1.5 L removed. Second dialysis on 12/10/2024 with 2100 ml removed. Third dialysis on 12/11/2024 with 2000 ml removed. Vein mapping performed on 12/09/2024. Consult cardiovascular surgeon for AV fistula. Fluid Management: Strict intake and output monitoring. Daily weights. Fluid restriction at 1200 mL. Nephrology: Continue following feeder catcher tobacco's recommendations. Antibiotics: Discontinue Azithromycin and Rocephin. Now Zosyn. PRN Medications: For pain management, fever, hypertension, nausea/vomiting, and constipation. Diabetes Management: Glucometer checks before meals and at bedtime with insulin regular sliding scale coverage as needed. Vital Signs: Blood pressure checks every 4 hours and as needed. Laboratory Monitoring: Monitor renal and liver function. Monitor electrolytes and treat as needed. Perform AM labs. Prophylaxis: GI prophylaxis with Pepcid and DVT prophylaxis with heparin. Further Orders: Adjust plan and orders as per hospitalization course. Case discussed with Dr. Padilla above plan was formulated ATTESTATION BY PHYSICIAN I have seen and examined the patient. I reviewed the documentation, medical decision making, and treatment plan as noted by the mid-level provider above. I agree with the findings and plan of care. JOVANA PADILLA,. LILIAN UMAÑA [facility] Dec 12, 2024 13:49
--- NOTE | 2024-12-12 13:57 | EKG ---
[facility] Test Date: 2024-12-11 Test Time: 13:41:44 Pat Name: JORDYN CEDENO Department: [facility] Room: 308 1 Gender: F Group Activities Aide: [id number] : [id number] Requested By: SINDY ELIZABETH Order Number: [id number] Reading MD: Joshua Roa Measurements Intervals Florien Rate: 75 P: 54 NE: 136 QRS: 4 QRSD: 86 T: 27 QT: 434 QTc: 484 Interpretive Statements Sinus rhythm with premature supraventricular complexes Possible Left atrial enlargement Left ventricular hypertrophy Nonspecific ST abnormality Compared to ECG 12/07/2024 15:30:28 Atrial premature complex(es) now present Left ventricular hypertrophy now present ST (T wave) deviation now present Electronically Signed On 12-12-2024 16:20:49 CDT by Joshua Roa Please click the below link to view image of tracing.
[2024-12-12] MEDS: MUPIROCIN OINTMENT 22 GM TUBE TP SCH (14:28)
[2024-12-13] VITALS (15 sets, daily range): BP systolic 136–161; BP diastolic 44–80; PULSE 16–92; RESP 16–20; TEMP 97.6–98.6; O2SAT 93–98
[2024-12-13 06:17] LABS: NUCLEATED RED BLOOD CELLS 0.2 % (0.0-0.19); PLATELET COUNT (AUTO) 234 K/uL (130-400); RED BLOOD CELL COUNT(AUTO) 3.68 MIL/uL (4.00-5.50); RED CELL DISTRIBUTION WIDTH 15.5 % (11.0-15.5); WHITE BLOOD COUNT (AUTO) 12.6 K/uL (4.8-10.8)
[2024-12-13 06:33] LABS: ASPARTATE AMINOTRANSFERASE 39.0 U/L (10-37); CREATININE 6.2 mg/dL (0.5-1.0); GLOMERULAR FILTR. RATE CALC 7.0 mL/min (>90); GLUCOSE,RANDOM 101.0 mg/dL (70-105); PHOSPHORUS 6.1 mg/dL (2.5-4.9); SODIUM SERUM 142.0 mmol/L (136-145); TOTAL PROTEIN, SERUM 7.0 g/dL (6.0-8.3); UREA NITROGEN, BLOOD 42.0 mg/dL (7-18)
--- NOTE | 2024-12-13 07:05 | HMCIMG ---
EXAM: CR Chest, 1 View. CLINICAL HISTORY: F/U STUDY INFILTRATES NOTED ON ADMISSION COMPARISON: None provided. FINDINGS: Right IJ central venous tunneled catheter in place with tip at superior atriocaval junction. LUNGS: Bibasilar airspace opacities present. Bilateral pulmonary vascular congestion. PLEURAL SPACES: No pleural effusion or pneumothorax. MEDIASTINUM: Mild cardiomegaly. BONES: No acute osseous abnormality. IMPRESSION: 1. Bibasilar airspace opacities with pulmonary vascular congestion. 2. Mild cardiomegaly. /[place]
[2024-12-13 07:47] LABS: ERYTHROCYTE SEDIMENTATION RATE 65 MM/HR (0-30)
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
[2024-12-14] VITALS (31 sets, daily range): BP systolic 127–156; BP diastolic 55–84; PULSE 70–99; RESP 16–20; TEMP 97.4–98.5; O2SAT 94–98
[2024-12-14 06:14] LABS: NUCLEATED RED BLOOD CELLS 0.5 % (0.0-0.19); PLATELET COUNT (AUTO) 224.0 K/uL (130-400); RED BLOOD CELL COUNT(AUTO) 3.29 MIL/uL (4.00-5.50); RED CELL DISTRIBUTION WIDTH 15.2 % (11.0-15.5); WHITE BLOOD COUNT (AUTO) 11.9 K/uL (4.8-10.8)
[2024-12-14 06:29] LABS: CREATININE 7.2 mg/dL (0.5-1.0); GLOMERULAR FILTR. RATE CALC 6.0 mL/min (>90); GLUCOSE,RANDOM 102.0 mg/dL (70-105); SODIUM SERUM 142.0 mmol/L (136-145); UREA NITROGEN, BLOOD 51.0 mg/dL (7-18)
--- NOTE | 2024-12-14 09:41 | PN ---
[facility] PROGRESS NOTE Date of Service: Dec 14, 2024 Time of Service: 09:38 SUBJECTIVE: [Ms. Kirby, a 69-year-old female with a history of CKD (non-dialysis), hypertension, diabetes, and hypercholesterolemia, initially presented with vomiting, chills, and epigastric pain. Imaging revealed bilateral lower lobe pneumonia and proximal colonic diverticulosis. Lab results showed elevated WBCs, BUN, and creatinine, indicating severe renal impairment. She was admitted with diagnoses of CKD, anemia, UTI and pneumonia. Over the following days, Ms. Kirby underwent PermCath placement and began dialysis. She received a blood transfusion for anemia and was started on sodium bicarbonate and magnesium supplementation. Urine cultures identified Klebsiella pneumoniae, and she was treated with Zosyn. An iron supplement was initiated for iron-deficiency anemia. 12/14/24 patient is tolerating dialysis. AV graft pending: The patient is fully awake and alert , denies diarrhea, chest pain, or shortness of breath. REVIEW OF SYSTEMS 12-point ROS reviewed with the patient. All pertinent positives mentioned above. Otherwise negative, noncontributory, non-pertinent. PHYSICAL EXAM GENERAL APPEARANCE: The patient is awake, alert, and oriented, in no acute cardiopulmonary distress. NEUROLOGICAL: Cranial nerves II-XII grossly intact. Motor is 5/5 in bilateral upper and lower extremities proximal to distal. No sensory deficits. HEENT: Face is symmetric. Pupils are equal and reactive. Extraocular movements are intact. NECK: Supple. No JVD. No thyromegaly. No submental, submandibular, pre- /postauricular, occipital or supraclavicular lymphadenopathy. CHEST: Normal chest expansion. No Telemetry. LUNGS: + wheezing. Breathing was even, unlabored, on room air CARDIOVASCULAR: Regular. S1 and S2 normal. No appreciable rubs, murmurs or gallops. ABDOMEN: Soft, nontender, and nondistended. Obese. There is no rebound, voluntary guarding, or rigidity. : Deferred. No Gupta. EXTREMITIES: Non-edematous and not cyanotic. No clubbing. Good capillary refill. SKIN: No skin breakdown. Vital Signs (last 8hr) Date Time Temp Pulse Resp B/P (MAP) Pulse Ox O2 Delivery O2 Flow Rate FiO2 12/14/24 08:00 98.1 84 19 156/61 94 Room Air 21 12/14/24 06:41 77 18 12/14/24 06:40 81 16 N/A Room Air 12/14/24 04:02 98.1 75 18 142/55 93 Room Air LABS: Laboratory: Test 12/14/24 05:17 12/14/24 05:12 12/13/24 05:25 Range/Units White Blood Count 11.9 H 4.8-10.8 K/uL Red Blood Count 3.29 L 4.00-5.50 MIL/uL Hemoglobin 8.6 L 12.0-16.0 g/dL Hematocrit 27.4 L 36-48 % Mean Corpuscular Volume 83.3 79-99 fL Mean Corpuscular Hemoglobin 26.1 L 27.0-33.0 pg Mean Corpuscular Hemoglobin Concent 31.4 L 32.0-36.0 g/dL Red Cell Distribution Width 15.2 11.0-15.5 % Platelet Count 224 130-400 K/uL Mean Platelet Volume 11.1 H 7.5-10.5 fL Nucleated Red Blood Cells 0.5 H 0.0-0.19 % Sodium Level 142 136-145 mmol/L Potassium Level 3.8 3.5-5.1 mmol/L Chloride Level 103 101-111 mmol/L Carbon Dioxide Level 24 21-32 mmol/L Blood Urea Nitrogen 51 H 7-18 mg/dL Creatinine 7.2 H 0.5-1.0 mg/dL Glomerular Filtration Rate Calc 6 >90 mL/min Random Glucose 102 70-105 mg/dL Total Calcium 8.5 8.5-10.1 mg/dL Whole Blood Glucose 104 # 70-110 MG/DL Red Blood Cell Morphology See comments Erythrocyte Sedimentation Rate 65 H 0-30 MM/HR Phosphorus Level 6.1 H 2.5-4.9 mg/dL Magnesium Level 2.20 1.80-2.40 mg/dL Total Bilirubin 0.4 0.2-1.0 mg/dL Aspartate Amino Transf (AST/SGOT) 39 H 10-37 U/L Alanine Aminotransferase (ALT/SGPT) 36 12-78 U/L Alkaline Phosphatase 93 50-136 U/L C-Reactive Protein, Quantitative 14.10 H 0.5-3.0 mg/L Total Protein 7.0 6.0-8.3 g/dL Albumin 2.8 L 3.5-5.0 g/dL Current Medications Medications (Trade) Dose Ordered Sig/Julio Cesar Route PRN Reason Start Time Stop Time Status Last Admin Dose Admin Acetaminophen (TYLenol 325MG TAB) 650 mg Q6H PRN PO FEVER/MILD PAIN LEVEL 1-3 12/07/24 21:00 01/06/25 20:59 12/10/24 07:18 650 MG Acetaminophen (TYLenol 650MG SUPPOSITORY) 650 mg Q6H PRN RC FEVER / MILD PAIN 1-3 IF NPO 12/07/24 21:00 01/06/25 20:59 Albuterol (DUOneb) 1 udvial [id number] IH 12/07/24 23:00 01/06/25 22:59 12/14/24 06:32 1 UDVIAL Albuterol Sulfate (Proventil 0.083% 2.5mg/3ml) 2.5 mg [id number] PRN IH SHORTNESS OF BREATH 12/07/24 21:00 01/06/25 20:59 12/07/24 21:49 2.5 MG Amlodipine Besylate (NorvASC 5MG TAB) 10 mg DAILY PO 12/08/24 09:00 12/09/24 12:44 DC 12/08/24 08:47 10 MG Azithromycin 250 ml @ 250 mls/hr Q24H IVPB 12/08/24 21:00 12/10/24 10:53 DC 12/09/24 22:37 250 MLS/HR Azithromycin 250 ml @ 250 mls/hr Q24H STAT IVPB 12/07/24 19:19 12/07/24 20:18 DC 12/07/24 19:47 250 MLS/HR Budesonide (Pulmicort 0.5 Mg/2ml) 0.5 mg BIDRESP IH 12/08/24 06:00 01/07/25 05:59 12/14/24 06:32 0.5 MG Calcitriol (Rocaltrol 0.25mcg Cap) 0.25 mcg DAILY PO 12/11/24 09:00 01/10/25 08:59 12/14/24 09:07 0.25 MCG Ceftriaxone Sodium (ROCEphine 1G INJ) 1 gm DAILY08 IVPB 12/08/24 08:00 12/08/24 04:05 DC Ceftriaxone Sodium (ROCEphine 1G INJ) 1 gm ONCE STAT IVPB 12/07/24 19:19 12/07/24 19:22 DC 12/07/24 19:34 1 GM Ceftriaxone Sodium (Rocephin 2gm Inj) 2 gm Q24H IVPB 12/08/24 20:00 12/10/24 10:53 DC 12/09/24 21:44 2 GM Docusate Sodium (COLace 100MG CAP) 100 mg BID PRN PO c 12/07/24 21:00 01/06/25 20:59 12/14/24 09:16 100 MG Epoetin Jerry-epbx (Retacrit) 10,000 unit QTUTHSA[DIALYSIS] SQ 12/08/24 16:00 01/07/25 15:59 12/12/24 16:35 10,000 UNIT Famotidine (Pepcid 20mg Vial) 20 mg ONCE STAT IV 12/07/24 15:10 12/07/24 15:14 DC 12/07/24 16:07 20 MG Famotidine (Pepcid 20mg Vial) 20 mg Q48H IV 12/08/24 09:00 01/07/25 08:59 12/14/24 09:07 20 MG Furosemide (LASix 40MG VIAL) 40 mg DAILY IV 12/07/24 23:00 12/09/24 12:44 DC 12/08/24 08:47 40 MG Guaifenesin (RobiTUSSin SUGAR-FREE 100 MG/ 5 ML UDCUP) 400 mg Q4HPRN PRN PO COUGH/COLD SYMPTOMS 12/08/24 04:00 01/07/25 03:59 Heparin Sodium (Porcine) (HEParin 5,000 UNIT VIAL) 5,000 unit Q12H SQ 12/07/24 21:00 01/06/25 20:59 12/14/24 09:09 5,000 UNIT Heparin Sodium (Porcine) (HEParin 5,000 UNIT VIAL) 10,000 unit AD IRRIG 12/11/24 09:00 01/10/25 08:59 12/11/24 09:37 10,000 UNIT Insulin Human Regular (humuLIN R 100 UNIT/ML 3ML) INSULIN SLIDING SCAL... ACHS SQ 12/07/24 21:00 01/06/25 20:59 12/13/24 19:39 12 UNIT Ipratropium [place] (AtrovENT UD) 0.5 mg [id number] PRN IH SHORTNESS OF BREATH/WHEEZING 12/07/24 21:00 01/06/25 20:59 12/10/24 18:58 0.5 MG Labetalol HCl (TRANdate 20MG SYG) 10 mg Q2H PRN IV SBP GREATER THAN 160 12/07/24 21:00 01/06/25 20:59 Lactulose (Constulose 20gm/ 30ml Udcup) 20 gm Q6H PRN PO CONSTIPATION 12/07/24 21:00 01/06/25 20:59 Leptospermum Honey (Medihoney) 1 APPLICATION DAILY TP 12/11/24 15:32 12/12/24 13:31 DC 12/12/24 08:49 1 APPL Magnesium Sulfate 50 ml @ 0 mls/hr PROTOCOL IV 12/08/24 18:00 12/08/24 17:39 DC Magnesium Sulfate 50 ml @ 0 mls/hr PROTOCOL IV 12/09/24 10:30 12/10/24 10:48 DC Magnesium Sulfate 50 ml @ 0 mls/hr PROTOCOL IV 12/10/24 11:00 01/09/25 10:59 12/10/24 20:40 25 MLS/HR Magnesium Sulfate 50 ml @ 0 mls/hr PROTOCOL PRN IV MAG 12/08/24 18:00 12/09/24 10:20 DC 12/09/24 06:53 25 MLS/HR Metoprolol Succinate (TopROL XL) 50 mg DAILY PO 12/08/24 09:00 01/07/25 08:59 12/13/24 07:57 50 MG Mupirocin (Bactroban Oint) 1 APPL TID TP 12/12/24 14:00 01/11/25 13:59 12/14/24 09:10 1 APPL Ondansetron HCl (zoFRAN 4MG INJ) 4 mg ONCE STAT IVP 12/07/24 15:10 12/07/24 15:15 DC 12/07/24 16:07 4 MG Ondansetron HCl (zoFRAN 4MG INJ) 4 mg Q6H PRN IVP NAUSEA/VOMITING 12/07/24 21:00 01/06/25 20:59 12/11/24 13:37 4 MG Piperacillin Sod/ Tazobactam Sod (Zosyn 3.375gm+NS 50ml) 3.375 gm Q12H IVPB 12/10/24 11:00 12/10/24 13:03 DC Piperacillin Sod/ Tazobactam Sod (Zosyn 3.375gm+NS 50ml) 3.375 gm Q12H IVPB 12/10/24 13:30 12/20/24 13:29 12/14/24 01:18 3.375 GM Promethazine HCl (Phenergan) 12.5 mg Q4HPRN PRN IM NAUSEA 12/11/24 17:30 01/10/25 17:29 Sevelamer HCl (RENAgel 800 MG TAB) 1,600 mg TIDMEALS PO 12/08/24 12:00 01/07/25 11:59 12/14/24 09:07 1,600 MG Sodium Bicarbonate (Sodium Bicarbonate) 650 mg BID PO 12/08/24 09:00 12/09/24 12:44 DC 12/08/24 19:58 650 MG Sodium Chloride 250 ml @ 0 mls/hr AD IV 12/09/24 14:30 01/08/25 14:29 Sodium Chloride 1,000 ml @ 0 mls/hr ONCE IV 12/09/24 14:30 01/08/25 14:29 12/11/24 09:38 100 MLS/HR Sodium Chloride 1,000 ml @ 500 mls/hr Q2H STAT IV 12/07/24 15:10 12/07/24 17:09 DC 12/07/24 16:08 500 MLS/HR Sodium Chloride (NS 50ml) 50 ml AD IV 12/10/24 11:00 12/11/24 16:19 DC Temazepam (restORIL 15 MG CAP) 15 mg HS PRN PO INSOMNIA/SLEEP 12/07/24 21:00 01/06/25 20:59 12/13/24 22:34 15 MG Vitamin B Complex/ Vit C/Folic Acid (Nephrovite Tablet) 1 cap DAILY PO 12/08/24 09:00 01/07/25 08:59 12/14/24 09:07 1 CAP DIAGNOSTICS / RADIOLOGY: [ ] ASSESSMENT: Abscess to Right labia, POA CAP, POA, bilateral lower lung pneumonia, per chest x-ray and CT Acute complicated cystitis, POA positive with Klebsiella pneumoniae s/p PermCath placement 12/08/2024 s/p 1st dialysis .5L removed s/p 2nd dialysis 12/10/24 Metabolic Acidosis, POA Acute epigastric pain, POA Acute vomiting, POA Acute febrile illness Leukocytosis, POA Anemia of chronic disease ESRD non dialysis, GFR 3 New diagnosis iron deficiency anemia Diabetes mellitus with hyperglycemia Hypoalbuminemia Elevated lipase PLAN: Admit to Medical Floor: Continuous telemetry monitoring. Right Labia Abscess: Previously drained, now with induration. Start Bactroban topical application three times daily. Respiratory Monitoring: Monitor respiratory status closely. Continue oxygen therapy as needed, titrating to maintain SpO2 ? 92%. Respiratory Medications: Administer Albuterol and Atrovent every 6 hours as scheduled. Pulmicort 0.5 mg twice daily. Cultures: Blood culture pending. Urine culture positive for Klebsiella pn eumoniae. Imaging: CT abdomen/pelvis shows bilateral lower lobe pneumonia, proximal colonic diverticulosis, and a nonobstructive umbilical hernia. Chest X-ray confirms bilateral lower lobe pneumonia. Repeat chest X-ray today. Dialysis: PermCath placed on 12/08/2024. First dialysis on 12/09/2024 with 1.5 L removed. Second dialysis on 12/10/2024 with 2100 ml removed. Third dialysis on 12/11/2024 with 2000 ml removed. Vein mapping performed on 12/09/2024. Consult cardiovascular surgeon for AV fistula.pending : possible today waiting for surgeon Fluid Management: Strict intake and output monitoring. Daily weights. Fluid restriction at 1200 mL. Nephrology: Continue following ems coordinator's recommendations. Antibiotics continue with Zosyn. Diabetes Management: Glucometer checks before meals and at bedtime with insulin regular sliding scale coverage as needed. Replace electrolytes as needed labs in am: cbc,cmp, and mag. Prophylaxis: GI prophylaxis with Pepcid and DVT prophylaxis with heparin. Further Orders: Adjust plan and orders as per hospitalization course. case management arranging outpatient setting: Hemodialysis in progress Case discussed with Dr. Corley above plan was formulated ATTESTATION BY PHYSICIAN I have seen and examined the patient. I reviewed the documentation, medical decision making, and treatment plan as noted by the mid-level provider above. I agree with the findings and plan of care. BALDO CORLEY MD, [facility] Dec 14, 2024 09:41
--- NOTE | 2024-12-14 11:17 | PN ---
DIALYSIS NOTE SUBJECTIVE: The patient was seen and evaluated on hemodialysis, prescription noted. OBJECTIVE: VITAL SIGNS: Blood pressure 156/61. CARDIOVASCULAR: Regular. LUNGS: Coarse. IMPRESSION: ESRD. PLAN: The patient continues with maximum ultrafiltration as blood pressure allows. The patient is being set up for outpatient dialysis. The patient is also being seen by Surgery for primary ____ access. TID: [id number] RECEIPT: [id number]
--- NOTE | 2024-12-14 11:35 | NUR ---
UPDATE TROY WITH DR. AGUILAR CALLED BACK REGARDING PENDING AV FISTULA PLACEMENT. PER MRS. SIMMONS, PROCEDURE WONT BE DONE TODAY, HOWEVER THEY WILL BE PLACED ON SCHEDULED POSSIBLE TOMORROW 12/15/2024. WILL CONSULT WITH MD AND PLACE ORDERS. NO FURTHER INSTRUCTIONS OR ORDERS GIVEN. PATIENT NOTIFIED AND VOICED UNDERSTANDING.
[2024-12-15] VITALS (12 sets, daily range): BP systolic 117–146; BP diastolic 55–65; PULSE 69–90; RESP 17–19; TEMP 98.2–98.5; O2SAT 95–98
[2024-12-15 05:48] LABS: NUCLEATED RED BLOOD CELLS 0.4 % (0.0-0.19); PLATELET COUNT (AUTO) 227.0 K/uL (130-400); RED BLOOD CELL COUNT(AUTO) 3.42 MIL/uL (4.00-5.50); RED CELL DISTRIBUTION WIDTH 15.3 % (11.0-15.5); WHITE BLOOD COUNT (AUTO) 10.8 K/uL (4.8-10.8)
[2024-12-15 05:57] LABS: CREATININE 4.9 mg/dL (0.5-1.0); GLOMERULAR FILTR. RATE CALC 9.0 mL/min (>90); GLUCOSE,RANDOM 139.0 mg/dL (70-105); SODIUM SERUM 141.0 mmol/L (136-145); UREA NITROGEN, BLOOD 30.0 mg/dL (7-18)
[2024-12-15 05:59] LABS: INR 0.99 (0.85-1.15)
--- NOTE | 2024-12-15 09:43 | PN ---
FOLLOWUP PROGRESS NOTE SUBJECTIVE: A 69-year-old female with history of diabetes mellitus and hypertension. She initially presented to the hospital with uremia. The patient has been initiated on dialysis. The patient continues to do well from a general medical standpoint. The patient's uremic symptoms are much improved. The patient is scheduled for a primary AV access later today. She is being set up for outpatient dialysis. The patient is being seen as a followup visit for all of the above. REVIEW OF SYSTEMS: GENERAL: She is feeling much improved. HEENT: No change in vision. No change in hearing. CARDIOVASCULAR: No current chest pain or palpitations. PULMONARY: No shortness of breath. GASTROINTESTINAL: She is not tolerating a diet. MUSCULOSKELETAL: Complains of weakness. PHYSICAL EXAMINATION: VITAL SIGNS: Blood pressure 121/55, pulse 90s, afebrile. GENERAL: Chronically ill female, elderly, lying in bed on the medical floor. HEENT: Head is atraumatic. Pupils are equal and roving to light. Oropharynx is without exudate. Nares are clear. NECK: There is no JVP. There is no thyromegaly. No mass. CARDIOVASCULAR: Regular. There is no S3, S4, gallop. LUNGS: Coarse with equal thoracic movement. ABDOMEN: Soft, nondistended, nontender. EXTREMITIES: No clubbing, no cyanosis. NEUROLOGICAL: She is awake. She is alert. She is oriented. LABORATORY DATA: Sodium 141, potassium 3.6. BUN 30, creatinine 4.9. Hemoglobin 9, hematocrit 28. IMPRESSION: * End-stage renal disease, on dialysis. * Diabetes mellitus. * Hypertension. * Anemia. PLAN: The patient has done well from a renal standpoint. The patient's uremic symptoms are much improved. The patient is being set up for outpatient dialysis. She is scheduled for primary AV access later today. Blood pressure is under adequate control. She remains on Epogen for the anemia. All labs can be repeated in the morning. TID: [id number] RECEIPT: [id number]
--- NOTE | 2024-12-15 11:08 | PN ---
[facility] PROGRESS NOTE Date of Service: Dec 15, 2024 Time of Service: 11:06 SUBJECTIVE: [Ms. Kirby, a 69-year-old female with a history of CKD (non-dialysis), hypertension, diabetes, and hypercholesterolemia, initially presented with vomiting, chills, and epigastric pain. Imaging revealed bilateral lower lobe pneumonia and proximal colonic diverticulosis. Lab results showed elevated WBCs, BUN, and creatinine, indicating severe renal impairment. She was admitted with diagnoses of CKD, anemia, UTI and pneumonia. Over the following days, Ms. Kirby underwent PermCath placement and began dialysis. She received a blood transfusion for anemia and was started on sodium bicarbonate and magnesium supplementation. Urine cultures identified Klebsiella pneumoniae, and she was treated with Zosyn. An iron supplement was initiated for iron-deficiency anemia. 12/14/24 patient is tolerating dialysis. AV graft pending: The patient is fully awake and alert , denies diarrhea, chest pain, or shortness of breath. 12/15/2024 patient is fully awake alert oriented x3 waiting for surgery patient is scheduled for AV shunt today after 2:00 p.m.. Then patient will be dialyzed as per immigration associate's. Patient denied chest pain or shortness for breath. REVIEW OF SYSTEMS 12-point ROS reviewed with the patient. All pertinent positives mentioned above. Otherwise negative, noncontributory, non-pertinent. PHYSICAL EXAM GENERAL APPEARANCE: The patient is awake, alert, and oriented, in no acute cardiopulmonary distress. NEUROLOGICAL: Cranial nerves II-XII grossly intact. Motor is 5/5 in bilateral upper and lower extremities proximal to distal. No sensory deficits. HEENT: Face is symmetric. Pupils are equal and reactive. Extraocular movements are intact. NECK: Supple. No JVD. No thyromegaly. No submental, submandibular, pre- /postauricular, occipital or supraclavicular lymphadenopathy. CHEST: Normal chest expansion. No Telemetry. LUNGS: + wheezing. Breathing was even, unlabored, on room air CARDIOVASCULAR: Regular. S1 and S2 normal. No appreciable rubs, murmurs or gallops. ABDOMEN: Soft, nontender, and nondistended. Obese. There is no rebound, voluntary guarding, or rigidity. : Deferred. No Gupta. EXTREMITIES: Non-edematous and not cyanotic. No clubbing. Good capillary refill. SKIN: No skin breakdown. Vital Signs (last 8hr) Date Time Temp Pulse Resp B/P (MAP) Pulse Ox O2 Delivery O2 Flow Rate FiO2 12/15/24 07:56 98.2 90 19 121/55 94 Room Air 21 12/15/24 07:45 98 Room Air* 0 21 12/15/24 06:32 80 17 N/A Room Air 21 12/15/24 06:29 80 18 12/15/24 03:15 98.4 88 18 117/65 98 Room Air LABS: Laboratory: Test 12/15/24 05:36 12/15/24 05:22 12/14/24 11:26 Range/Units White Blood Count 10.8 4.8-10.8 K/uL Red Blood Count 3.42 L 4.00-5.50 MIL/uL Hemoglobin 9.0 L 12.0-16.0 g/dL Hematocrit 28.7 L 36-48 % Mean Corpuscular Volume 83.9 79-99 fL Mean Corpuscular Hemoglobin 26.3 L 27.0-33.0 pg Mean Corpuscular Hemoglobin Concent 31.4 L 32.0-36.0 g/dL Red Cell Distribution Width 15.3 11.0-15.5 % Platelet Count 227 130-400 K/uL Mean Platelet Volume 10.5 7.5-10.5 fL Nucleated Red Blood Cells 0.4 H 0.0-0.19 % Prothrombin Time 10.5 9.6-11.6 SEC Prothromb Time International Ratio 0.99 0.85-1.15 Activated Partial Thromboplast Time 25.6 L 26.3-35.5 SEC Sodium Level 141 136-145 mmol/L Potassium Level 3.6 3.5-5.1 mmol/L Chloride Level 102 101-111 mmol/L Carbon Dioxide Level 28 21-32 mmol/L Blood Urea Nitrogen 30 H 7-18 mg/dL Creatinine 4.9 H 0.5-1.0 mg/dL Glomerular Filtration Rate Calc 9 >90 mL/min Random Glucose 139 H 70-105 mg/dL Total Calcium 8.9 8.5-10.1 mg/dL Whole Blood Glucose 141 H 70-110 MG/DL Bedside Glucose Comment Notified Nurse Current Medications Medications (Trade) Dose Ordered Sig/Julio Cesar Route PRN Reason Start Time Stop Time Status Last Admin Dose Admin Acetaminophen (TYLenol 325MG TAB) 650 mg Q6H PRN PO FEVER/MILD PAIN LEVEL 1-3 12/07/24 21:00 01/06/25 20:59 12/10/24 07:18 650 MG Acetaminophen (TYLenol 650MG SUPPOSITORY) 650 mg Q6H PRN RC FEVER / MILD PAIN 1-3 IF NPO 12/07/24 21:00 01/06/25 20:59 Albuterol (DUOneb) 1 udvial [id number] IH 12/07/24 23:00 01/06/25 22:59 12/15/24 06:34 1 UDVIAL Albuterol Sulfate (Proventil 0.083% 2.5mg/3ml) 2.5 mg [id number] PRN IH SHORTNESS OF BREATH 12/07/24 21:00 01/06/25 20:59 12/07/24 21:49 2.5 MG Amlodipine Besylate (NorvASC 5MG TAB) 10 mg DAILY PO 12/08/24 09:00 12/09/24 12:44 DC 12/08/24 08:47 10 MG Azithromycin 250 ml @ 250 mls/hr Q24H IVPB 12/08/24 21:00 12/10/24 10:53 DC 12/09/24 22:37 250 MLS/HR Azithromycin 250 ml @ 250 mls/hr Q24H STAT IVPB 12/07/24 19:19 12/07/24 20:18 DC 12/07/24 19:47 250 MLS/HR Budesonide (Pulmicort 0.5 Mg/2ml) 0.5 mg BIDRESP IH 12/08/24 06:00 01/07/25 05:59 12/15/24 06:34 0.5 MG Calcitriol (Rocaltrol 0.25mcg Cap) 0.25 mcg DAILY PO 12/11/24 09:00 01/10/25 08:59 12/14/24 09:07 0.25 MCG Cefazolin Sodium (Ancef) 2 gm ONCALL PRN IVPB OTH 12/15/24 13:00 12/17/24 12:59 Ceftriaxone Sodium (ROCEphine 1G INJ) 1 gm DAILY08 IVPB 12/08/24 08:00 12/08/24 04:05 DC Ceftriaxone Sodium (ROCEphine 1G INJ) 1 gm ONCE STAT IVPB 12/07/24 19:19 12/07/24 19:22 DC 12/07/24 19:34 1 GM Ceftriaxone Sodium (Rocephin 2gm Inj) 2 gm Q24H IVPB 12/08/24 20:00 12/10/24 10:53 DC 12/09/24 21:44 2 GM Docusate Sodium (COLace 100MG CAP) 100 mg BID PRN PO c 12/07/24 21:00 01/06/25 20:59 12/14/24 09:16 100 MG Epoetin Jerry-epbx (Retacrit) 10,000 unit QTUTHSA[DIALYSIS] SQ 12/08/24 16:00 01/07/25 15:59 12/12/24 16:35 10,000 UNIT Famotidine (Pepcid 20mg Vial) 20 mg ONCE STAT IV 12/07/24 15:10 12/07/24 15:14 DC 12/07/24 16:07 20 MG Famotidine (Pepcid 20mg Vial) 20 mg Q48H IV 12/08/24 09:00 01/07/25 08:59 12/14/24 09:07 20 MG Furosemide (LASix 40MG VIAL) 40 mg DAILY IV 12/07/24 23:00 12/09/24 12:44 DC 12/08/24 08:47 40 MG Guaifenesin (RobiTUSSin SUGAR-FREE 100 MG/ 5 ML UDCUP) 400 mg Q4HPRN PRN PO COUGH/COLD SYMPTOMS 12/08/24 04:00 01/07/25 03:59 Heparin Sodium (Porcine) (HEParin 5,000 UNIT VIAL) 5,000 unit Q12H SQ 12/07/24 21:00 01/06/25 20:59 12/14/24 22:00 5,000 UNIT Heparin Sodium (Porcine) (HEParin 5,000 UNIT VIAL) 10,000 unit AD IRRIG 12/11/24 09:00 01/10/25 08:59 12/14/24 20:33 10,000 UNIT Insulin Human Regular (humuLIN R 100 UNIT/ML 3ML) INSULIN SLIDING SCAL... ACHS SQ 12/07/24 21:00 01/06/25 20:59 12/14/24 22:01 10 UNIT Ipratropium [place] (AtrovENT UD) 0.5 mg [id number] PRN IH SHORTNESS OF BREATH/WHEEZING 12/07/24 21:00 01/06/25 20:59 12/10/24 18:58 0.5 MG Labetalol HCl (TRANdate 20MG SYG) 10 mg Q2H PRN IV SBP GREATER THAN 160 12/07/24 21:00 01/06/25 20:59 Lactulose (Constulose 20gm/ 30ml Udcup) 20 gm Q6H PRN PO CONSTIPATION 12/07/24 21:00 01/06/25 20:59 Leptospermum Honey (Medihoney) 1 APPLICATION DAILY TP 12/11/24 15:32 12/12/24 13:31 DC 12/12/24 08:49 1 APPL Magnesium Sulfate 50 ml @ 0 mls/hr PROTOCOL IV 12/08/24 18:00 12/08/24 17:39 DC Magnesium Sulfate 50 ml @ 0 mls/hr PROTOCOL IV 12/09/24 10:30 12/10/24 10:48 DC Magnesium Sulfate 50 ml @ 0 mls/hr PROTOCOL IV 12/10/24 11:00 01/09/25 10:59 12/10/24 20:40 25 MLS/HR Magnesium Sulfate 50 ml @ 0 mls/hr PROTOCOL PRN IV MAG 12/08/24 18:00 12/09/24 10:20 DC 12/09/24 06:53 25 MLS/HR Metoprolol Succinate (TopROL XL) 50 mg DAILY PO 12/08/24 09:00 01/07/25 08:59 12/15/24 09:21 50 MG Mupirocin (Bactroban Oint) 1 APPL TID TP 12/12/24 14:00 01/11/25 13:59 12/15/24 09:21 10 APPL Ondansetron HCl (zoFRAN 4MG INJ) 4 mg ONCE STAT IVP 12/07/24 15:10 12/07/24 15:15 DC 12/07/24 16:07 4 MG Ondansetron HCl (zoFRAN 4MG INJ) 4 mg Q6H PRN IVP NAUSEA/VOMITING 12/07/24 21:00 01/06/25 20:59 12/11/24 13:37 4 MG Piperacillin Sod/ Tazobactam Sod (Zosyn 3.375gm+NS 50ml) 3.375 gm Q12H IVPB 12/10/24 11:00 12/10/24 13:03 DC Piperacillin Sod/ Tazobactam Sod (Zosyn 3.375gm+NS 50ml) 3.375 gm Q12H IVPB 12/10/24 13:30 12/20/24 13:29 12/15/24 02:53 3.375 GM Promethazine HCl (Phenergan) 12.5 mg Q4HPRN PRN IM NAUSEA 12/11/24 17:30 01/10/25 17:29 Sevelamer HCl (RENAgel 800 MG TAB) 1,600 mg TIDMEALS PO 12/08/24 12:00 01/07/25 11:59 12/14/24 12:33 1,600 MG Sodium Bicarbonate (Sodium Bicarbonate) 650 mg BID PO 12/08/24 09:00 12/09/24 12:44 DC 12/08/24 19:58 650 MG Sodium Chloride 250 ml @ 0 mls/hr AD IV 12/09/24 14:30 01/08/25 14:29 Sodium Chloride 1,000 ml @ 0 mls/hr ONCE IV 12/09/24 14:30 01/08/25 14:29 12/14/24 17:23 1,000 MLS/HR Sodium Chloride 1,000 ml @ 500 mls/hr Q2H STAT IV 12/07/24 15:10 12/07/24 17:09 DC 12/07/24 16:08 500 MLS/HR Sodium Chloride (NS 50ml) 50 ml AD IV 12/10/24 11:00 12/11/24 16:19 DC Temazepam (restORIL 15 MG CAP) 15 mg HS PRN PO INSOMNIA/SLEEP 12/07/24 21:00 01/06/25 20:59 12/14/24 21:59 15 MG Vitamin B Complex/ Vit C/Folic Acid (Nephrovite Tablet) 1 cap DAILY PO 12/08/24 09:00 01/07/25 08:59 12/14/24 09:07 1 CAP DIAGNOSTICS / RADIOLOGY: [ ] ASSESSMENT: Abscess to Right labia, POA CAP, POA, bilateral lower lung pneumonia, per chest x-ray and CT Acute complicated cystitis, POA positive with Klebsiella pneumoniae s/p PermCath placement 12/08/2024 s/p 1st dialysis .5L removed s/p 2nd dialysis 12/10/24 Metabolic Acidosis, POA Acute epigastric pain, POA Acute vomiting, POA Acute febrile illness Leukocytosis, POA Anemia of chronic disease ESRD non dialysis, GFR 3 New diagnosis iron deficiency anemia Diabetes mellitus with hyperglycemia Hypoalbuminemia Elevated lipase PLAN: Admit to Medical Floor: Continuous telemetry monitoring. Right Labia Abscess: Previously drained, now with induration. Start Bactroban topical application three times daily. Respiratory Monitoring: Monitor respiratory status closely. Continue oxygen therapy as needed, titrating to maintain SpO2 ? 92%. Respiratory Medications: Administer Albuterol and Atrovent every 6 hours as scheduled. Pulmicort 0.5 mg twice daily. Cultures: Blood culture pending. Urine culture positive for Klebsiella pneumoniae. Dialysis: PermCath placed on 12/08/2024. Patient had x3 dialysis. Vein mapping performed on 12/09/2024. Scheduled for AV shunt today Consult cardiovascular surgeon is following Fluid Management: Strict intake and output monitoring. Daily weights. Fluid restriction at 1200 mL. Nephrology: Continue following immigration associate's recommendations. Antibiotics continue with Zosyn. Diabetes Management: Glucometer checks before meals and at bedtime with insulin regular sliding scale coverage as needed. Replace electrolytes as needed labs in am: cbc,cmp, and mag. Prophylaxis: GI prophylaxis with Pepcid and DVT prophylaxis with heparin. Further Orders: Adjust plan and orders as per hospitalization course. case management arranging outpatient setting: Hemodialysis has been arranged dialysis on Saturday. Case discussed with Dr. Corley above plan was formulated ATTESTATION BY PHYSICIAN I have seen and examined the patient. I reviewed the documentation, medical decision making, and treatment plan as noted by the mid-level provider above. I agree with the findings and plan of care. BALDO CORLEY MD, ELIZABETH NP Dec 15, 2024 11:08
[2024-12-15] MEDS ORDERED: BUDESONIDE 0.5 MG/2 ML INH IH PRN (11:30)
--- NOTE | 2024-12-15 13:20 | NUR ---
[facility] Follow-up: Patient re-assessed by wound healing team. See wound assessment. Assessment and recommendations provided to primary nurse. Education provided. Addendum: 12/16/24 at 1334 by ROBER WISEMAN RN RN/ Amended: Links added.
--- NOTE | 2024-12-15 15:40 | NUR ---
off unit to or
[2024-12-15] MEDS ORDERED: HEParin-NS 1,000 UNIT/500 ML 500 ML IV ONE ×2 (16:00→16:35)
[2024-12-15] MEDS ORDERED: MIDAZOLAM HCL 1 MG/ML 2ML VIAL ONE (16:23)
[2024-12-15] MEDS ORDERED: LIDOCAINE PF 100MG/5ML (2%) SYRINGE 5ML ONE (16:23)
--- NOTE | 2024-12-15 18:07 | NUR ---
RETURNED FROM OR. AV SHUNT NOT PERFORMED D/T SURGEON HAVING AN EMERGENCY. RESCHEDULED FOR TOMORROW
[2024-12-16] VITALS (36 sets, daily range): BP systolic 120–178; BP diastolic 47–70; PULSE 72–83; RESP 15–20; TEMP 97.6–98.4; O2SAT 97–100
[2024-12-16 09:29] LABS: CREATININE 6.9 mg/dL (0.5-1.0); GLOMERULAR FILTR. RATE CALC 6.0 mL/min (>90); GLUCOSE,RANDOM 148.0 mg/dL (70-105); SODIUM SERUM 142.0 mmol/L (136-145); UREA NITROGEN, BLOOD 41.0 mg/dL (7-18)
--- NOTE | 2024-12-16 09:32 | PN ---
DIALYSIS NOTE SUBJECTIVE: The patient was seen and evaluated on hemodialysis, prescription noted. PHYSICAL EXAMINATION: VITAL SIGNS: Blood pressure is 148/70. CARDIOVASCULAR: Regular. LUNGS: Coarse. IMPRESSION: ESRD. PLAN: The patient continues with dialysis as needed. The patient is being seen for her primary AV access. We will continue to follow her closely. TID: [id number] RECEIPT: [id number]
[2024-12-16] MEDS ORDERED: Calcitriol 0.25MCG Cap PO (09:50)
[2024-12-16] MEDS ORDERED: Folic Acid/Vitamin B Comp W-C PO (09:50)
[2024-12-16] MEDS ORDERED: sevELAMer HCL 800 MG TAB PO (09:50)
[2024-12-16] MEDS ORDERED: METF-444 PO (09:56)
[2024-12-16] MEDS ORDERED: CEFD300C3 PO (09:56)
--- NOTE | 2024-12-16 10:07 | DS ---
Discharge Summary Hospital Course Summary: [Ms. Kirby, a 69-year-old female with a history of CKD (non-dialysis), hypertension, diabetes, and hypercholesterolemia, initially presented with vomiting, chills, and epigastric pain. Imaging revealed bilateral lower lobe pneumonia and proximal colonic diverticulosis. Lab results showed elevated WBCs, BUN, and creatinine, indicating severe renal impairment. She was admitted with diagnoses of CKD, anemia, UTI and pneumonia. Over the following days, Ms. Kirby underwent PermCath placement and began dialysis. She received a blood transfusion for anemia and was started on sodium bicarbonate and magnesium supplementation. Urine cultures identified Klebsiella pneumoniae, and she was treated with Zosyn. An iron supplement was initiated for iron-deficiency anemia. 12/14/24 patient is tolerating dialysis. AV graft pending: The patient is fully awake and alert , denies diarrhea, chest pain, or shortness of breath. 12/15/2024 patient is fully awake alert oriented x3 waiting for surgery patient is scheduled for AV shunt today after 2:00 p.m.. 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 Patient denied chest pain or shortness for breath. 12/16/2024 STATUS POST AV SHUNT WAS PLACED TODAY NO SIGNS OF BLEEDING.follow up with Dr Gaines. Encouraged to keep arm elevated. Patient will be discharged with PermCath we will continue to use until AV graft is mature. 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 URINE CULTURES WERE POSITIVE FOR KLEBSIELLA PNEUMONIAE PATIENT WILL BE DISCHARGED ON CEFDINIR 300 MG P.O. B.I.D.. ON ADMISSION PATIENT WAS ANEMIA SECONDARY TO CHRONIC RENAL FAILURE PATIENT WILL BE DISCHARGED ON ORAL SUPPLEMENTS. VITAMIN B12 AND FOLIC ACID ONE CAPSULE DAILY. RENAGEL 1600 MG T.I.D. WITH MEALS. PATIENT IS CLINICALLY STABLE FOR DISCHARGE HEMODYNAMICALLY. ALL QUESTIONS WERE ADDRESSED. Plant Safety Leader(s): REASON: right flank pain ORDERING PHYSICIAN: PARKER SHEA NP PROCEDURE: ABD PEL WO - CT ABDOMEN/PELVIS W/O CONTRAST CT ABDOMEN WITHOUT CONTRAST. CT PELVIS WITHOUT CONTRAST. INDICATION: Right flank pain TECHNIQUE: Routine transaxial imaging using 5 mm slice thickness through the abdomen and pelvis without the administration of IV contrast. Thin slice reconstructions are also provided. Coronal and sagittal reformatted images acquired for interpretation. CT was performed with one or more of the following dose reduction techniques: Automated exposure control, adjustment of the mA and/or kV according to patient size, or use of iterative reconstruction technique. COMPARISON: None FINDINGS: ON NONCONTRAST IMAGING: ABDOMEN: Heart size is normal. Patchy opacities bilateral lower lobes No abnormal renal calcifications, hydronephrosis, perinephric inflammation, or proximal hydroureter detected. The liver is normal in size and smooth in contour without biliary duct dilation. The spleen is normal in size and attenuation. The gallbladder his absent. The pancreas appears normal without pancreatic duct dilation. The adrenal glands appear normal. No significant abdominal, retrocrural or retroperitoneal adenopathy noted. No evidence for intra-abdominal free air or organized fluid collection. Mild calcific plaque is noted along the abdominal aortic and iliac vessel ludwig without aneurysmal dilation. Tiny fat-containing nonobstructing umbilical hernia. PELVIS: No abnormal calcifications within the urinary bladder or distal ureters. No evidence for free air or organized pelvic fluid collection. No significant pelvic adenopathy detected. Several diverticula along the proximal colon. Terminal ileum appears unremarkable. The appendix appears normal. Visible osseous structures are intact. IMPRESSION: Bilateral lower lobe pneumonia. Procedure(s): REASON: ORDERING PHYSICIAN: PROCEDURE: - TUNNELED DIALYSIS CATHETER PLACEMENT INDICATION: History of chronic kidney disease for hemodialysis. FOIL CUTTER: Dr. Simon. TECHNIQUE: Informed consent was obtained after explaining the procedure and potential. Patient was placed supine on the angiographic table. Timeout performed. All elements of maximal sterile barrier technique, including hand hygiene, sterile gown, gloves and mask were utilized. The neck and chest were prepped and draped in sterile fashion. Under ultrasound and fluoroscopic guidance, access was gained into the internal jugular vein with a 21G needle. Over a wire, a peel-away sheath was deployed leaving its tip in the superior vena cava. Skin leonel made and entry site in the anterior/superior chest wall and a tunneling device was utilized to advance cm BioFlo Duramax catheter through the subcutaneous tissues and into the venotomy site. The catheter advanced through the sheath, which was peeled away. Catheter was heparin locked and secured to the skin with a suture. Sterile dressing applied. ANESTHETIC: 10 mL Lidocaine 1% SQ. BLOOD LOSS: < 5 mL. COMPLICATIONS: None. IMPRESSION: Successful PermCath placement in the right internal jugular vein. TID: [id number] RECEIPT: [id number] AV SHUNT Assessment/Plan: discharged dxs Abscess to Right labia, POA CAP, POA, bilateral lower lung pneumonia, per chest x-ray and CT Acute complicated cystitis, POA positive with Klebsiella pneumoniae s/p PermCath placement 12/08/2024 s/p 1st dialysis .5L removed s/p 2nd dialysis 12/10/24 Metabolic Acidosis, POA Acute epigastric pain, POA RESOLVED Acute vomiting, POA RESOLVED Acute febrile illness RESOLVED Leukocytosis, POA RESOLVED Anemia of chronic disease : ORAL SUPPLEMENTS ON DISCHARGED ESRD non dialysis, GFR 3 WILL CONTINUE OUTPATIENT: 3X WEEKLY New diagnosis iron deficiency anemia Diabetes mellitus with hyperglycemia AIC: WILL START METFORMIN 500 MG PO BID Hypoalbuminemia Elevated lipase resolved PLAN: ADMISSION DATE: 12/07/2024 DISCHARGE DATE: 12/16/2024 DISPOSITION: Home CONDITION: Stable 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 for five days Metformin HCl 500 Mg Tablet b.i.d. [Calcitriol 0.25MCG Cap] 0.25 MCG CAPSULE daily [Folic Acid/Vitamin B Comp W-C] 1 CAP TAB daily [sevELAMer HCL 800 MG TAB] 800 MG/TAB TABLET t.i.d. with meals TEACHING: PermCath care, fluid restrictions1 L per day avoid sodium. Daily weight Emergency instructions: The patient was instructed to present to the nearest Emergency Department or call 911 should their symptoms return or worsen. Discharge Instructions: RUN DATE: 12/10/24 [facility] RUN TIME: [phone] [place] [address] Department of Laboratories CLIA # [id number] Eclectic Doctor: Marcus Hays DO Specimen Report ------ ------ PATIENT: JORDYN KIRBY ACCT: [id number] LOC: [facility] U: [id number] AGE/SX: 69/F ROOM: [facility] RE12/07/24 [facility] DR: IVETTE AQUINO MD : 1955 BED: 1 DIS: STATUS: ADM IN TLOC: SPEC: [id number] IRINA: 12/08/24 STATUS: COMP REQ: [id number] RECD: 12/08/24 [facility] DR: ROBERTO JENKINS MD SOURCE: [facility] ENTR: 12/08/[address] [facility] DR: IVETTE AQUINO MD SPDC: CLEAN CAT SHORTY BLISS MD ORDERED: AERO ID & SENS Procedure Result Joel Date-Time AEROBIC ID & SENSITIVITIES Final 12/10/24-07 [facility] COLONY DESCRIPTION: DAY 1: COLONY COUNT: >100,000 CFU/ML GRAM NEGATIVE RODS IDENTIFICATION AND SENSITIVITY TO FOLLOW KLEBSIELLA PNEUMONIAE K PNEUMO M.I.C. RX --------- ---- AZTREONAM <=4 S CEFAZOLIN <=2 S CEFTAZIDIME/AVIBACTAM <=8 S GENTAMICIN <=2 S LEVOFLOXACIN <=0.5 S NITROFURANTOIN <=32 S MEROPENEM <=1 S PIPERACILLIN/TAZOBACTAM <=8 S TRIMETHOPRIM/SUFLAMETHOXAZOLE <=2/38 S RUN DATE: 12/12/24 [facility] RUN TIME: [id number] [address], [place] [address] Department of [facility] # [id number] Eclectic Doctor: Marcus Hays DO Specimen Report PATIENT: JORDYN KIRBY ACCT: [id number] LOC: [facility] U: [id number] AGE/SX: 69/F ROOM: 308 RE12/07/[address]: IVETTE AQUINO MD : 1955 BED: 1 DIS: STATUS: ADM IN TLOC: SPEC: [id number] IRINA: 12/07/24 STATUS: COMP REQ: [id number] RECD: 12/07/24-[address]: PARKER SHEA NP SOURCE: BLOOD ENTR: 12/07/24-[address]: ROBERTO JENKINS MD SPDESC: NONE SELF,REFERRAL ORDERED: BLOOD CULTURE COMMENTS: What is the Source? BLOOD Procedure Result Joel Date-Time BLOOD CULT Final 12/12/24-2099 NO GROWTH AFTER 5 DAYS RUN DATE: 12/12/24 [facility] RUN TIME: 1952 [address] [address], [place] [address] Department of Laboratories CLIA # [id number] Eclectic Doctor: Marcus Hays DO Specimen Report PATIENT: JORDYN KIRBY ACCT: [id number] LOC: [facility] U: [id number] AGE/SX: 69/F ROOM: [facility] RE12/07/[address]: IVETTE AQUINO MD : 1955 BED: 1 DIS: STATUS: ADM IN TLOC: SPEC: [id number] IRINA: 12/07/24 STATUS: COMP REQ: [id number] RECD: 12/07/[address]: PARKER SHEA NP SOURCE: BLOOD ENTR: 12/07/[address]: ROBERTO JENKINS MD [facility]: NONE SELF,REFERRAL ORDERED: BLOOD CULTURE COMMENTS: What is the Source? BLOOD Procedure Result Joel Date-Time BLOOD CULT Final 12/12/24-1952 NO GROWTH AFTER 5 DAYS Home Medications: Active Scripts [sevELAMer HCL 800 MG TAB] 800 MG/TAB TABLET No Conflict Check, 1600 MG PO TIDMEALS for 30 Days, #90 MG 0 Refills Prov:ANDREW KHAN NP 12/16/24 [Folic Acid/Vitamin B Comp W-C] 1 CAP TAB No Conflict Check, 1 CAP PO DAILY for 30 Days, #30 TAB 0 Refills Prov:ANDREW KHAN NP 12/16/24 [Calcitriol 0.25MCG Cap] 0.25 MCG CAPSULE No Conflict Check, 0.25 MCG PO DAILY for 30 Days, #30 MCG 0 Refills Prov:ADNREW KHAN NP 12/16/24 Reported Medications Furosemide (Furosemide) 40 Mg/4 Ml Solution, 40 MG PO DAILY, ML 12/07/24 Amlodipine Besylate (Amlodipine Besylate) 10 Mg Tablet, 10 MG PO DAILY for 30 Days, #30 TAB 0 Refills 12/07/24 Metoprolol Succinate (Metoprolol Succinate) 50 Mg Tab.er.24h, 50 MG PO DAILY, TAB 12/07/24 New Medications: Cefdinir (Cefdinir) 300 Mg Capsule 1 CAP PO BID for 5 Days, #10 CAP 0 Refills Metformin HCl (Metformin HCl) 500 Mg Tablet 1 TAB PO BID for 30 Days, #60 TAB 0 Refills [Calcitriol 0.25MCG Cap] () 0.25 MCG CAPSULE 0.25 MCG PO DAILY for 30 Days, #30 MCG 0 Refills [Folic Acid/Vitamin B Comp W-C] () 1 CAP TAB 1 CAP PO DAILY for 30 Days, #30 TAB 0 Refills [sevELAMer HCL 800 MG TAB] () 800 MG/TAB TABLET 1600 MG PO TIDMEALS for 30 Days, #90 MG 0 Refills Continued Medications: Amlodipine Besylate (Amlodipine Besylate) 10 Mg Tablet 10 MG PO DAILY for 30 Days, #30 TAB 0 Refills Furosemide (Furosemide) 40 Mg/4 Ml Solution 40 MG PO DAILY, ML Metoprolol Succinate (Metoprolol Succinate) 50 Mg Tab.er.24h 50 MG PO DAILY, TAB Time spent arranging discharge: 31-60 minutes ATTESTATION BY PHYSICIAN I have seen and examined the patient. I reviewed the documentation, medical decision making, and treatment plan as noted by the mid-level provider above. I agree with the findings and plan of care. BALDO CORLEY MD, ELIZABETH NP Dec 16, 2024 10:07
[2024-12-16] MEDS ORDERED: HEParin-NS 1,000 UNIT/500 ML 500 ML IV ONE (10:09)
[2024-12-16] MEDS ORDERED: MIDAZOLAM HCL 1 MG/ML 2ML VIAL ONE (11:32)
[2024-12-16] MEDS ORDERED: PROTamine SULFate 10 MG/ML 25ML VIAL IV ONE (12:21)
--- NOTE | 2024-12-16 13:35 | NUR ---
RECEIVED PATIENT FROM RECOVERY, EASILY AROUSABLE ,LEFTARM WITH POSITIVE BRUIT AUSCULTATED WITH STETHOSCOPE . LEFT HAND GRASP PATENT WITH GOOD CAPILLARY REFILL TO FINGERS SENSATION INTACT.
--- NOTE | 2024-12-16 20:31 | NUR ---
D/C INSTRUCTIONS INSTRUCTIONS GIVEN TO PT REGARDING DIALYSIS DAYS -- AND TIME. INSTRUCTIONS ON HOW TO CARE FOR PERMACATH TO RT CHEST AND AV FISTULA. FOLLOW UP APPTS AND MEDICATIONS SENT TO [facility]. SPOUSE PRESENT WHEN INSTRUCTIONS GIVEN, ALL QUESTIONS AND CONCERNS ANSWERED. PT WANTS TO EAT BEFORE SHE LEAVES. INSTRUCTED TO CALL WHEN SHE IS READY TO BE TAKEN DOWNSTAIRS, SHE VERBALIZED UNDERSTANDING, IV REMOVED. DENIES PAIN AT THIS TIME.
--- NOTE | 2024-12-16 20:37 | NUR ---
ALL MEDS GIVEN PRIOR TO DISCHARGE WELL.
--- NOTE | 2024-12-16 22:06 | NUR ---
TELE PENDING TELE PLACEMENT D/T NO TELE'S AVAILABLE. Addendum: 12/16/24 at 2207 by JOHNNIE KEEN LVN LVN WRONG PT
--- NOTE | 2024-12-17 16:33 | OP ---
DATE OF PROCEDURE: 12/16/2024 TIME: 10:00 a.m. PREOPERATIVE DIAGNOSIS: End-stage renal disease. POSTOPERATIVE DIAGNOSIS: End-stage renal disease. PROCEDURE PERFORMED: Left brachial artery, cephalic vein, arteriovenous fistula creation. SURGEON: Marcela Gaines MD DIRECTOR OF PRODUCT MANAGEMENT: Maya Yo. DESCRIPTION OF PROCEDURE: Following anesthesia induction without any complication and appropriate preparation of the operative field, a 5 cm incision was made over the left antecubital fossa. The brachial artery was identified. Proximal digital control was obtained. The cephalic vein was identified and dissected proximally and distally. It was ligated with silk tie. After that, heparin dose was given to the patient and an end-to-side anastomosis in the cephalic vein and the brachial artery was performed using 6-0 Prolene suture. After that, the clamps were released and there was good blood flow to the distal brachial artery and good filling to the fistula site. After that, hemostasis was obtained. The wound was closed with 2-0 Vicryl and 3-0 Monocryl suture. I was present throughout the entire operation. The patient tolerated the operation well and transferred back to the postanesthesia care unit in stable condition. TID: [id number] RECEIPT: [id number]
== END 2024-12-16 21:00 | disposition home or self-care (01) | DRG 673 ==
LOC: EDH 15:02 → UNDOADMIN 15:03 → EDHIP 15:03 → 3BH 22:26 → EDHIP 22:26
PROVIDERS: ADMIT Internal Medicine; ATTEND Internal Medicine
PROC: 30233N1 Transfusion of Nonautologous Red Blood Cells into Peripheral Vein, Percutaneous Approach (ICD-10-PCS; 2024-12-08)
PROC: B548ZZA Ultrasonography of Superior Vena Cava, Guidance (ICD-10-PCS; principal; 2024-12-09)
PROC: 0JH63XZ Insertion of Tunneled Vascular Access Device into Chest Subcutaneous Tissue and Fascia, Percutaneous Approach (ICD-10-PCS; 2024-12-09)
PROC: 02HV33Z Insertion of Infusion Device into Superior Vena Cava, Percutaneous Approach (ICD-10-PCS; 2024-12-09)
PROC: B5181ZZ Fluoroscopy of Superior Vena Cava using Low Osmolar Contrast (ICD-10-PCS; 2024-12-09)
PROC: 5A1D70Z Performance of Urinary Filtration, Intermittent, Less than 6 Hours Per Day (ICD-10-PCS; 2024-12-09)
PROC: 5A1D70Z Performance of Urinary Filtration, Intermittent, Less than 6 Hours Per Day (ICD-10-PCS; 2024-12-10)
PROC: 5A1D70Z Performance of Urinary Filtration, Intermittent, Less than 6 Hours Per Day (ICD-10-PCS; 2024-12-11)
PROC: 5A1D70Z Performance of Urinary Filtration, Intermittent, Less than 6 Hours Per Day (ICD-10-PCS; 2024-12-14)
PROC: 5A1D70Z Performance of Urinary Filtration, Intermittent, Less than 6 Hours Per Day (ICD-10-PCS; 2024-12-16)
DX: N17.9 Acute kidney failure, unspecified (principal); J18.9 Pneumonia, unspecified organism; I12.0 Hypertensive chronic kidney disease with stage 5 chronic kidney disease or end stage renal disease; E87.20 Acidosis, unspecified; N30.00 Acute cystitis without hematuria; N76.4 Abscess of vulva; N18.6 End stage renal disease; E88.09 Other disorders of plasma-protein metabolism, not elsewhere classified; E11.65 Type 2 diabetes mellitus with hyperglycemia; D63.1 Anemia in chronic kidney disease; B96.1 Klebsiella pneumoniae [K. pneumoniae] as the cause of diseases classified elsewhere; D50.9 Iron deficiency anemia, unspecified; E11.22 Type 2 diabetes mellitus with diabetic chronic kidney disease; E78.00 Pure hypercholesterolemia, unspecified; K42.9 Umbilical hernia without obstruction or gangrene; Z20.822 Contact with and (suspected) exposure to COVID-19; K57.30 Diverticulosis of large intestine without perforation or abscess without bleeding; R62.7 Adult failure to thrive; Z99.2 Dependence on renal dialysis; Z79.84 Long term (current) use of oral hypoglycemic drugs; Z91.199 Patient's noncompliance with other medical treatment and regimen due to unspecified reason; Z91.158 Patient's noncompliance with renal dialysis for other reason; Z68.28 Body mass index [BMI] 28.0-28.9, adult; Z79.899 Other long term (current) drug therapy
CPT/HCPCS: 36415; 36430; 36558; 36600; 71045; 74176; 77001; 80048; 80051; 80053; 80061; 80076; 81001; 82040; 82435; 82565; 82570; 82728; 82803; 82947; 82948; 83036; 83540; 83550; 83605; 83690; 83735; 83880; 83935; 83970; 84100; 84132; 84295; 84443; 84520; 84550; 85014; 85018; 85025; 85027; 85610; 85651; 85730; 86140; 86701; 86704; 86706; 86803; 86850; 86900; 86901; 86923; 87040; 87086; 87186; 87340; 87390; 87635; 87804; 87880; 90935; 93005; 93971; 94640; 94664; 96361; 96374; 96375; 99156; 99285; A6248; C1750; G0378; J0456; J0612; J0690; J0696; J1644; J1756; J1815; J1938; J2003; J2250; J2270; J2405; J2543; J2550; J2704; J2720; J3010; J3475; J3490; J7030; J7050; P9016; A4216; A4222; A4223; C1894; Q5106